=== PATIENT | female | born 1980 | race Caucasian/White ===

== ENCOUNTER 2022-12-26 16:04 | Outpatient (OUT) | payer OTHER, BC, SELFPAY ==
--- NOTE | 2022-12-26 | XR_ITS ---
The [address] [address] Patient Name: LUDWIN PACHECO MRN: [id number] date: 1980 Sex: F Assigned Patient Location: [facility] Current Patient Location: [facility] Accession/Order Number: [id number] Exam Date: 12/26/2022 16:30 Report Date: 12/26/2022 17:43 At the request of: SHAIKH ITZEL Procedure: XR chest 2V EXAM: Chest x-ray HISTORY: . Acute upper respiratory infection . COMPARISON: None. TECHNIQUE: Frontal and lateral chest FINDINGS: Heart and vascularity are unremarkable. Lungs are free of focal infiltrates. No acute bony abnormality is appreciated. XR/XR chest 2V IMPRESSION: No acute heart or lung disease identified. Electronically authenticated by: ALYSSA AGUILAR Date: 12/26/2022 17:43
== END 2022-12-26 16:05 | disposition home or self-care (01) ==
PROVIDERS: PCP Family Medicine; Visit Provider Internal Medicine
DX: J06.9 Acute upper respiratory infection, unspecified (principal)
CPT/HCPCS: 71046

== ENCOUNTER 2023-01-02 08:22 | Outpatient (OUT) | payer OTHER, BC, SELFPAY ==
[2023-01-02 08:32] LABS: Adenovirus NOT DETECTED (NOT DETECTE); Bordetella parapertussis NOT DETECTED (NOT DETECTE); Coronavirus 229E NOT DETECTED (NOT DETECTE); Coronavirus HKU1 NOT DETECTED (NOT DETECTE); Coronavirus NL63 NOT DETECTED (NOT DETECTE); Coronavirus OC43 NOT DETECTED (NOT DETECTE); Human Metapneumovirus NOT DETECTED (NOT DETECTE); Human Rhinovirus/Enterovirus NOT DETECTED (NOT DETECTE); Influenza A NOT DETECTED (NOT DETECTE); Influenza B NOT DETECTED (NOT DETECTE); Mycoplasma pneumoniae NOT DETECTED (NOT DETECTE); Parainfluenza Virus 1 NOT DETECTED (NOT DETECTE); Parainfluenza Virus 2 NOT DETECTED (NOT DETECTE); Parainfluenza Virus 3 NOT DETECTED (NOT DETECTE); Parainfluenza Virus 4 NOT DETECTED (NOT DETECTE); Respiratory Syncytial Virus NOT DETECTED (NOT DETECTE); SARS-CoV-2 NOT DETECTED (NOT DETECTE)
== END 2023-01-02 08:23 | disposition home or self-care (01) ==
PROVIDERS: PCP Family Medicine; Visit Provider Internal Medicine
DX: J06.9 Acute upper respiratory infection, unspecified (principal)
CPT/HCPCS: 0202U

== ENCOUNTER 2023-01-15 16:56 | Outpatient (REF) | payer OTHER, BC, SELFPAY ==
[2023-01-15 17:39] LABS: Anion Gap 11.5; BUN Creatinine Ratio 12.2; Calcium 9.2 mg/dL (8.5-10.1); Carbon Dioxide 26.4 mmol/L (21.0-32.0); Chloride 105 mmol/L (98-107); Estimated GFR (African America >60 (>=60); Estimated GFR (Non-African Ame >60 (>=60); Glucose 103 mg/dL (74-106); Potassium 3.9 mmol/L (3.5-5.1); Sodium 139 mmol/L (136-145)
== END 2023-01-15 16:57 | disposition home or self-care (01) ==
LOC: LAB 16:56
PROVIDERS: PCP Family Medicine; Visit Provider Internal Medicine
DX: I10 Essential (primary) hypertension (principal)
CPT/HCPCS: 36415; 80048

== ENCOUNTER 2023-01-18 16:08 | Outpatient (OUT) | payer OTHER, BC, SELFPAY ==
[2023-01-18 16:26] LABS: Basophils Percent Auto 0.4 % (0.2-2.0); Eosinophils Absolute Auto 0.3 10^3/uL (0.0-0.7); Eosinophils Percent Auto 3.5 % (0.9-7.0); Hematocrit 40.1 % (36.0-48.0); Hemoglobin 13.6 g/dL (12.0-16.0); Immature Granulocytes Abs Auto 0.06 10^3/uL (0.00-0.03); Immature Granulocytes Pct Auto 0.6 % (0.0-0.5); Lymphocytes Absolute Auto 2.5 10^3/uL (1.2-3.8); Lymphocytes Percent Auto 25.9 % (20.5-60.0); Mean Corpuscular HGB Conc 33.9 g/dL (29.9-35.2); Mean Corpuscular Hemoglobin 30.8 pg (26.7-34.0); Mean Corpuscular Volume 90.7 fL (81.0-99.0); Mean Platelet Volume 9.7 fL (9.5-13.5); Monocytes Absolute Auto 0.6 10^3/uL (0.3-0.8); Monocytes Percent Auto 6.3 % (1.7-12.0); Neutrophils Absolute Auto 6.1 10^3/uL (1.4-6.5); Neutrophils Percent Auto 63.3 % (43.0-75.0); Platelet Count 290 10^3/uL (150-450); Red Blood Count 4.42 10^6/uL (4.20-5.40); Red Cell Distribution Width 11.7 % (11.0-15.0); White Blood Count 9.6 10^3/uL (4.0-11.0)
[2023-01-18 16:41] LABS: Estimated Average Glucose 114 mg/dL; Glycohemoglobin A1C 5.6 % (4.5-6.2)
[2023-01-18 16:55] LABS: Alanine Aminotransferase 20 U/L (14-59); Albumin Level 3.9 g/dL (3.4-5.0); Alkaline Phosphatase 81 U/L (46-116); Aspartate Amino Transferase 13 U/L (15-37); BUN Creatinine Ratio 7.7; Bilirubin Direct 0.1 mg/dL (0.0-0.2); Bilirubin Total 0.4 mg/dL (0.2-1.0); Calcium 9.1 mg/dL (8.5-10.1); Carbon Dioxide 29.6 mmol/L (21.0-32.0); Chloride 104 mmol/L (98-107); Chol HDL Ratio 3.8; Cholesterol 187 mg/dL (<=200); Estimated GFR (African America >60 (>=60); Estimated GFR (Non-African Ame >60 (>=60); Glucose 92 mg/dL (74-106); HDL Cholesterol 49 mg/dL (40-60); LDL Cholesterol Calculated 119.6 mg/dL; Potassium 3.6 mmol/L (3.5-5.1); Sodium 140 mmol/L (136-145); Thyroid Stimulating Hormone 3.433 uIU/mL (0.358-3.740); Total Protein 7.9 g/dL (6.4-8.2); Triglycerides 92 mg/dL (<=150); VLDL CHOLESTEROL 18.4 mg/dL
== END 2023-01-18 16:09 | disposition home or self-care (01) ==
LOC: LAB 16:10
PROVIDERS: PCP Family Medicine; Visit Provider Family Medicine
DX: Z00.00 Encounter for general adult medical examination without abnormal findings (principal); R06.02 Shortness of breath
CPT/HCPCS: 36415; 80048; 80061; 80076; 83036; 84443; 85025

== ENCOUNTER 2023-01-23 13:16 | Outpatient (OUT) | payer OTHER, BC, SELFPAY ==
[2023-01-23 13:53] LABS: Bilirubin Urine NEGATIVE (NEGATIVE); Blood Urine NEGATIVE (NEGATIVE); Clarity Urine CLEAR (CLEAR); Color Urine LT. YELLOW (YELLOW); Glucose Urine UA NEGATIVE (NEGATIVE); Ketones Urine NEGATIVE (NEGATIVE); Leukocyte Esterase Urine NEGATIVE (NEGATIVE); Nitrite Urine NEGATIVE (NEGATIVE); Protein Urine NEGATIVE (NEG/TRACE); Specific Gravity Urine 1.025 (1.005-1.025); Urobilinogen Urine 0.2 EU/dL (0.2-1.0)
[2023-01-23 14:01] LABS: Urine Microscopic Indicated NO
== END 2023-01-23 13:17 | disposition home or self-care (01) ==
LOC: LAB 13:19
PROVIDERS: PCP Family Medicine; Visit Provider Family Medicine
DX: R30.0 Dysuria (principal)
CPT/HCPCS: 81003; 87086

== ENCOUNTER 2023-03-12 07:34 | Outpatient (OUT) | payer OTHER, BC, SELFPAY ==
--- OUTSIDE RECORDS SUMMARY | 2023-03-12 07:38 | XMS_ITS | CCD ---
Author Name Unknown Address [address] [place] [address] Organization [facility] Care Team Providers Care Human Resources District Manager Name Role Phone (Historical), No Pcp Primary Care Provider Unava ilable ABBIE EARLY Attending Unavailable HAGEN, SHANIA Attending Unavailable ABBIE EARLY Referring Unavailable NADERER, DR DIEGO Ashley Attending Unavailable NADERER, DR DIEOG Ashley Admitting Unavailable NADERER, DR DIEGO Ashley Primary Care Unavailable NADERER, DR DIEGO Ashley Consulting Unavailable NADERER, DR DIEGO Ashley Admitting Unavailable NADERER, DR DIEGO Ashley Primary Care Unavailable NADERER, DR DIEGO Ashley Consulting Unavailable NADERER, DR DIEGO Ashley Attending Unavailable NADERER, DIEGO Attending Unavailable NADERER, DIEGO Attending Unavailable NADERER, DIEGO Referring Unavailable NADERER, DIEGO Referring Unavailable Allergies Allergy Classification Reported Allergen(s) Allergy Type Date of Onset Reaction(s) Facility (4 sources) Ciprofloxacin; Translations: [CIPROFLOXACIN] Drug Allergy 03-31-2014 [facility] (4 sources) Ethanol; Translations: [ALCOHOL] Drug Allergy 03-31-2014 [facility] (1 source) Ciprofloxacin Drug Allergy 06-13-2015 [facility]ository Medications Completed/Discontinued Medications Medication Drug Class(es) Dates Sig (Normalized) Sig (Original) acetaminophen 500 mg oral tablet (1 source) acetaminophen (TYLENOL EXTRA STRENGTH) 500 mg tablet Take 500 mg by mouth as needed. 0 Active Comment on above: Take 500 mg by mouth as needed. Magnesium glycinate (1 source) Start: 01-11-2022 Magnesium Glycinate 120mg - 90 ct. (Pure Encapsulations) Take 4 capsules daily at bedtime 0 01/11/2022 Active Comment on above: Take 4 capsules silvestre y at bedtime meloxicam 7.5 mg oral tablet (2 sources) Nonsteroidal Anti-inflammatory Drug Start: 04-07-2014 End: 01-11-2022 meloxicam (MOBIC) 7.5 mg tablet Take once daily with food or milk for 2 weeks, then begin taking as needed. 30 tablet 2 04/07/2014 01/11/2022 Discontinued (Discontinued by Patient) Comment on above: Take once daily with food or milk for 2 weeks, then begin taking as needed. Methylcobalamin B12 5000mcg (Klaire/Prothera) (1 source) Start: 01-11-2022 take 1 tablet by mouth once daily Methylcobalamin B12 5000mcg (Klaire/Prothera) Take 1 tablet by mouth once daily. 0 01/11/2022 Active Comment on above: Take 1 tablet by tracey th once daily. nabumetone 500 mg oral tablet (2 sources) Nonsteroidal Anti-inflammatory Drug End: 01-11-2022 take 500 mg by mouth three times daily NABUMETONE (RELAFEN ORAL) Take 500 mg by mouth three times daily. 0 01/11/2022 Discontinued (Discontinued by Patient) Comment on above: Take 500 mg by mouth three times daily. OmegAvail [id number] ([employer]) (1 source) Start: 01-11-2022 OmegAvail [id number] (Wallarm) Take one softgel daily. 0 01/11/2022 Active Comment on above: Take one softgel jerad ly. PhytoMulti (Metagenics) (1 source) Start: 01-11-2022 PhytoMulti (Metagenics) Take 2 tablets daily with food 0 01/11/2022 Active Comment on above: Take 2 tablets daily with food Vitamin D3 5000 U (Pure Encapsulations) (1 source) Start: 01-11-2022 take 1 capsule by mouth once daily at mealtime Vitamin D3 5000 U (Pure Encapsulations) Take 1 capsule by mouth daily with food. 0 01/11/2022 Active Comment on above: Take 1 capsule by mo uth daily with food. Problems Problem Classification Problem Date Documented Da te Episodic/Chronic Administrative/social admission (2 sources) Patient encounter status; Translations: [Dietary counseling and surveillance] Episodic Allergic reactions (5 sources) Urticaria; Translations: [Urticaria, unspecified] Onset: 01-11-2022 Episodic Diabetes or abnormal glucose tolerance complicating ; childbirth; or the puerperium (5 sources) History of gestational diabetes mellitus; Translations: [Personal history of gestational diabetes] Onset: 01-11-2022 Episodic Essential hypertension (6 sources) Hypertensive disorder; Translations: [Essential (primary) hypertension] Onset: 12-31-2021 Chronic Malaise and fatigue (6 sources) Fatigue; Translations: [Chronic fatigue, unspecified] Onset: 01-11-2022 Chronic Nutritional deficiencies (5 sources) Cobalamin deficiency; Translations: [Deficiency of other specified B group vitamins] Onset: 01-11-2022 Episodic Other aftercare (1 source) 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) drug therapy; Translations: [OTH [facility] CURRENT DRUG THERAPY] Onset: 12-31-2021 Episodic Other connective tissue disease (5 sources) Fibromyalgia; Translations: [Fibromyalgia] Onset: 01-11-2022 Episodic Other connective tissue disease (1 source) Fibromyalgia; Translations: [Fibromyalgia] Onset: 01-11-2022 Episodic Other gastrointestinal disorders (4 sources) Passing flatus; Translations: [Flatulence] Onset: 01-11-2022 Episodic Other gastrointestinal disorders (5 sources) Abdominal bloating; Translations: [Abdominal distension (gaseous)] Onset: 01-11-2022 Episodic Other gastrointestinal disorders (1 source) Flatulence; Translations: [Flatulence] Onset: 01-11-2022 Episodic Other gastrointestinal disorders (1 source) Abdominal distension (gaseous); Translations: [Postprandial bloating] Onset: 01-11-2022 Episodic Other screening for suspected conditions (not mental disorders or infectious disease) (5 sources) Other specified abnormal findings of blood chemistry; Translations: [OTH SPEC ABNORMAL FINDINGS BLD CHEM] Onset: 07-15-2021 Episodic Residual codes; unclassified (4 sources) Exposure to toxin; Translations: [Contact with and (suspected) exposure to other hazardous substances] Onset: 01-11-2022 Episodic Residual codes; unclassified (5 sources) Contact with and (suspected) exposure to mold (toxic); Translations: [Contact with and (suspected) exposure to mold] Onset: 01-11-2022 Episodic Residual codes; unclassified (1 source) Exposure to mercury; Translations: [Contact with and (suspected) exposure to other hazardous metals] Episodic Residual codes; unclassified (4 sources) Suspected Lyme disease; Translations: [Other general symptoms and signs] Onset: 01-11-2022 Episodic Residual codes; unclassified (4 sources) Family history of diabetes mellitus in first degree relative; Translations: [Family history of diabetes mellitus] Onset: 01-11-2022 Episodic Residual codes; unclassified (1 source) Contact with and (suspected) exposure to other hazardous substances; Translations: [Toxin exposure] Onset: 01-11-2022 Episodic Residual codes; unclassified (1 source) Contact with and (suspected) exposure to other hazardous metals; Translations: [Exposure to mercury] Onset: 01-11-2022 Episodic Residual codes; unclassified (1 source) Other general symptoms and signs; Translations: [Suspected Lyme disease] Onset: 01-11-2022 Episodic Residual codes; unclassified (1 source) Family history of diabetes mellitus; Translations: [Family history of diabetes mellitus in father] Onset: 01-11-2022 Episodic Systemic lupus erythematosus and connective tissue disorders (7 sources) Lupus erythematosus; Translations: [Systemic lupus erythematosus, unspecified] Onset: 12-31-2021 Chronic Results Test Name Value Interpretation Reference Range Facility CT CHEST WO IV CONTRASTon CT CHEST WO IV CONTRAST EXAMINATION: CT scan chest HISTORY: Short of breath, chronic cough. COMPARISON: None TECHNIQUE: Multiple serial axial images of the chest from the base of the neck through the upper abdomen with both sagittal coronal reconstruction was performed without intravenous or oral administration of contrast. All CT scans at this facility use dose modulation, iterative reconstruction, and/or weight based dosing when appropriate to reduce radiation dose to as low as reasonably achievable. FINDINGS: The right lung parenchyma shows no focal parenchymal abnormalities. No pleural effusions. No pneumothoraces. The left lung parenchyma shows no focal parenchymal abnormalities no pleural effusions. No pneumothoraces. The heart and great vessels are intact. No significant periaortic, pretracheal, parahilar or subcarinal adenopathy. In the xrydn-[id number] of the abdomen there is a small hiatal hernia. Lies osseous structures are intact IMPRESSION: UNREMARKABLE CT SCAN OF THE CHEST ELECTRONICALLY SIGNED BY: Kaushal Gonsales MD Normal Not Available 25([place])D3 [facility] 2021 25-hydroxyvitamin D3 [Mass/Vol] 38.3 ng/mL Normal 31.0-80.0 [facility] Comment on above: Order Comment: Speci men Type: BLOOD SPECIMEN Ordering Facility: [facility] Address: [address] [place], [place] [id number] Result Comment: Clas sification of 25 [place] Vitamin D status: Deficiency/Insufficiency: < or = 30 ng/ml. Sufficiency/Optimal Levels: 31-80 ng/mL Toxicity: > 100 ng/mL. Test performed by chemiluminescent immunoassay. Performed By: #### 2 2293-5, 41680-6 #### [facility] CLIA [id number] [address] [facility] DESK [id number] [place] [address] [facility] ARSENIC BLDon 01-11-2022 ARSENIC, BLOOD <10.0 Normal <=12.0 [facility] Comment on above: Order Comment: Speci men Type: BLOOD SPECIMEN Ordering Facility: [facility] Address: [address] [place] [address] Result Comment: INTE RPRETIVE INFORMATION: Arsenic, Blood Elevated results may be due to skin or collection-related contamination, including the use of a noncertified metal-free collection/transport tube. If contamination concerns exist due to elevated levels of blood arsenic, confirmation with a second specimen collected in a certified metal-free tube is recommended. Potentially toxic ranges for blood arsenic: Greater than or equal to 600 ug/L. Blood arsenic is for the detection of recent exposure poisoning only. Blood arsenic levels in healthy subjects vary considerably with exposure to arsenic in the diet and the environment. A 24-hour urine arsenic is useful for the detection of chronic exposure. This test was developed and its performance characteristics determined by [facility]. It has not been cleared or approved by the [place] Food and Drug Administration. This test was performed in a CLIA certified laboratory and is intended for clinical purposes. Performed By: [facility] [address] [place] [address] Pouring Crane Operator: Yadiel Lopes MD, PhD Performed By: #### B KIERA HARRINGTON #### [employer] CLIA [id number] [address] [place] [address] B. burgdorferi IgG and IgM p jada (S)on 01-11-2022 B. burgdorferi IgG+IgM Qn (S) Negative Normal Negative [facility] Comment on above: Order Comment: Speci men Type: BLOOD SPECIMEN Ordering Facility: [facility] Address: [address] [id number] Result Comment: Rece nt infection with B. burgdorferi sensu lato cannot be excluded if the specimen collected within four weeks after the onset of signs and symptoms or within six weeks after a known tick exposure. Clinical and epidemiological correlation is required. Performed By: #### 2 2293-5, 07892-7 #### [facility] CLIA [id number] [address] [facility] [id number] [place] [address] OF [facility] BABESIA CLINTON IGG/IGMon 2021 BABESIA MICROTI, IGG < 1:16 Normal < 1:16 [facility] Comment on above: Order Comment: Order ing Facility: [facility] Address: [address] Result Comment: INTE RPRETIVE INFORMATION: Babesia microti Antibody, IgG Less than 1:16 ........ Negative - No significant level of detectable Babesia IgG antibodies. 1:16 .................. Equivocal - Repeat testing in 10-14 days may be helpful. Greater than 1:16 ..... Positive - IgG antibodies to Babesia detected which may indicate a current or previous infection. This test was developed and its performance characteristics determined by [facility]. It has not been cleared or approved by the [place] Food and Drug Administration. This test was performed in a CLIA certified laboratory and is intended for clinical purposes. Performed By: #### B [facility] #### [facility] CLIA [id number] [address] [place] [address] BABESIA MICROTI, IGM <1:20 Normal <1:20 [facility] Comment on above: Order Comment: Order ing Facility: [facility] Address: [address] [place] [address] Result Comment: INTE RPRETIVE INFORMATION: Babesia microti Antibody, IgM Less than 1:20 ........ Negative - No significant level of detectable Babesia IgM antibodies. 1:20 .................. Equivocal - Repeat testing in 10-14 days may be helpful. Greater than 1:20 ..... Positive - IgM antibodies to Babesia detected which may indicate a current or recent infection. This test was developed and its performance characteristics determined by [facility]. It has not been cleared or approved by the US Food and Drug Administration. This test was performed in a CLIA certified laboratory and is intended for clinical purposes. Performed By: [facility] [address] [place] [address] Pouring Crane Operator: Yadiel Lopes MD, PhD Performed By: #### B [facility] #### [facility] CLIA [id number] [address] [place] [address] BARTONELLA AB PANELon 2021 NURY MTZ IGG AB <1:64 Normal [facility] Comment on above: Order Comment: Speci men Type: BLOOD SPECIMEN Ordering Facility: [facility] Address: [address] [place], [place] [phone] Result Comment: INTE RPRETIVE INFORMATION: Bartonella mtz Antibody, IgG Less than 1:64 ....... Negative: No significant level of Bartonella mtz IgG antibody detected. 1:64 - 1:128 ........ Equivocal: Questionable presence of Bartonella mtz IgG antibody detected. Repeat testing in 10-14 days may be helpful. 1:256 or greater ..... Positive: Presence of IgG antibody to Bartonella mtz detected, suggestive of current or past infection. A low positive suggests past exposure or infection, while high positive results may indicate recent or current infection, but is inconclusive for diagnosis. Seroconversion between acute and convalescent sera is considered strong evidence of recent infection. The best evidence for infection is a significant change on two appropriately timed specimens where both tests are done in the same laboratory at the same time. This test was developed and its performance characteristics determined by [facility]. It has not been cleared or approved by the US Food and Drug Administration. This test was performed in a CLIA certified laboratory and is intended for clinical purposes. Performed By: #### B ARTAB, ECHAFF #### [facility] CLIA [id number] [address] [place] [address] NURY MTZ IGM AB < 1:16 Normal [facility] Comment on above: Order Comment: Speci la Type: BLOOD SPECIMEN Ordering Facility: [facility] Address: [address] [place], [place] [id number] Result Comment: INTE RPRETIVE INFORMATION: Bartonella mtz Ab, IgM Less than 1:16 ...... Negative-No significant level of Bartonella mtz IgM antibody detected. 1:16 or greater ..... Positive-Presence of IgM antibody to Bartonella mtz detected, suggestive of current or recent infection. The presence of IgM antibodies suggests recent infection. Low levels of IgM antibodies may occasionally persist for more than 12 months post-infection. This test was developed and its performance characteristics determined by [facility]. It has not been cleared or approved by the US Food and Drug Administration. This test was performed in a CLIA certified laboratory and is intended for clinical purposes. Performed By: [facility] [employer] [address] [place] [address] Pouring Crane Operator: Yadiel Lopes MD, PhD Performed By: #### B ARTAB, [facility] #### [facility] CLIA [id number] [address] [place] [address] BARTONELLA HENSELAE AB, IGG <1:64 Normal [facility] Comment on above: Order Comment: Leidy tovar Type: BLOOD SPECIMEN Ordering Facility: [facility] Address: [address] [place], [place] [phone] Result Comment: INTE RPRETIVE INFORMATION: Bartonella henselae Ab, IgG Less than 1:64 ....... Negative: No significant level of Bartonella henselae IgG antibody detected. 1:64 - 1:128 ......... Equivocal: Questionable presence of Bartonella henselae IgG antibody detected. Repeat testing in 10-14 days may be helpful. 1:256 or greater ..... Positive: Presence of IgG antibody to Bartonella henselae detected, suggestive of current or past infection. A low positive suggests past exposure or infection, while high positive results may indicate recent or current infection, but are inconclusive for diagnosis. Seroconversion between acute and convalescent sera is considered strong evidence of recent infection. The best evidence for infection is significant change on two appropriately timed specimens where both tests are done in the same laboratory at the same time. This test was developed and its performance characteristics determined by [facility]. It has not been cleared or approved by the US Food and Drug Administration. This test was performed in a CLIA certified laboratory and is intended for clinical purposes. Performed By: #### B KIERA HARRINGTON #### [facility] CLIA [id number] [address] [place] [address] BARTONELLA HENSELAE AB, IGM < 1:16 Normal [facility] Comment on above: Order Comment: Speci men Type: BLOOD SPECIMEN Ordering Facility: [facility] Address: [address] [place] [id number] Result Comment: INTE RPRETIVE INFORMATION: Bartonella henselae Antibody, IgM Less than 1:16 ...... Negative: No significant level of Bartonella henselae IgM antibody detected. 1:16 or greater ..... Positive: Presence of IgM antibody to Bartonella henselae detected, suggestive of current or recent infection. The presence of IgM antibodies suggest recent infection, low levels of IgM antibodies may occasionally persist for more than 12 months post infection. This test was developed and its performance characteristics determined by [facility]. It has not been cleared or approved by the US Food and Drug Administration. This test was performed in a CLIA certified laboratory and is intended for clinical purposes. Performed By: #### B KIERA HARRINGTON #### [facility] CLIA [id number] [address] [place] [address] CNOVon 01-11-2022 CNOV Office Visit ([facility] ) JU MCNAIR ([id number]) 1980 F Date Time Provider Department 01/11/22 9:45 AM ABBIE EARLY [facility] During your visit today, we recorded the following information about you: Temperature Pulse Blood pressure Weight 97.2 degrees 79/minute 132/84 75.1 kg Height 1.626 m Abbie Early MD 01/11/2022 10:59 AM Signed FUNCTIONAL MEDICINE INITIAL ASSESSMENT ALLERGIES Allergen Reactions Alcohol Hives Drinking Alcohol not Rubbing Alcohol Ciprofloxacin Hives Current Outpatient Medications Medication Sig Dispense Refill acetaminophen (TYLENOL EXTRA STRENGTH) 500 mg tablet Take 500 mg by mouth as needed. PhytoMulti (Metagenics) Take 2 tablets daily with food Magnesium Glycinate 120mg - 90 ct. (Pure Encapsulations) Take 4 capsules daily at bedtime OmegAvail [id number] (Wallarm) Take one softgel daily. Methylcobalamin B12 5000mcg (Klaire/Prothera) Take 1 tablet by mouth once daily. Vitamin D3 5000 U (Pure Encapsulations) Take 1 capsule by mouth daily with food. 0 No current facility-administered medications for this visit. PAST MEDICAL HISTORY Diagnosis Date Anemia associated with acute blood loss after premature of child Gall bladder stones removed 02/18/01 History of blood transfusion 3 Units PRBC's after 1 premature of child PAST SURGICAL HISTORY Procedure Laterality Date DANDC (INCOMPLETE AB), ANY TRIMESTER misscarriage KNEE ARTHROSCOP MENISCUS REPAIR MED/LAT 10/2002 Right KNEE ARTHROSCOP MENISCUS REPAIR MED/LAT 12/2002 Right- refixed tear LAPAROSCOPY SURG CHOLECYSTECTOMY 02/18/2001 multiple gallstones LASER SURGERY OF EYE 1999 lasix REMOVAL OF KNEE CARTILAGE 11/2002 Left Social History Tobacco Use Smoking status: Never Smokeless tobacco: Never Substance Use Topics Alcohol use: No Drug use: No EVALUATION MSQ: 157 Patient Entered Questionnaire PROMIS Scale T-Scores -- HIGHER SCORES BETTER Depression Screening: PHQ-9 Self-Harm (Item 9) response options: 0 Not at all 1 Several days 2 More than half the days 3 Nearly every day PHQ-9 Levels: 0-4 Minimal depression 5-9 Mild depression 10-14 Moderate depression 15-19 Moderately severe depression 20-27 Severe depression Subjective: Initial Visit Dr. Early 01/11/22 Medical Symptom Questionnaire 157, very high This consultation was requested by Yaneth Espinoza CNP My final recommendations will be communicated to the referring physician by way of the shared medical record for internal providers. Thank you for the opportunity to participate in the care of your patient, Ju Mcnair, whom I saw in [facility]. HPI: General InfoLast Medical Care:Jan 09, 2022 - [facility] - Yaneth Espinoza [facility] Physician Name:Dr. Solitario MarmolejoLearned about our practice from:Referral from Doctor Health Goals What do you hope to achieve in your visit with us?:I hope to feel better, loose weight and have the energy to keep up with my busy scheduleWhen was the last time you felt well?:I dont remember. I have had lupus for a long while, and have felt worse since my hysterectomy in [place] something trigger your change in health?:Maybe stress/ but I always have stress physically/ mentallyWhat makes you feel better?:Bubble baths in epson salt, sleep,What makes you feel worse?:Being too activeHow does your condition affect you?:I get dizzy, lightheaded, lots of joint pain and discomfort, swelling in my hands and feet and legs, chest pains, difficulty breathing at times, high blood pressure, sometimes thyroid trouble, fibromialgia, struggles when my hormones change, discomfort with all food causing heartburn troubleWhat do you think is happening and why?:I think my body hates me. Really I think that my hormones are a mess, and my gut health, sleep schedule is sparatic due to pain and discomfortWhat do you feel needs to happen for you to get better?:I think I need to make better choices health correa and to keep my stress in control. Current Health Concerns Current Problem Name Date Started Priority Severity Prior Treatment Success of Prior Treatment lupus - 1 Severe Yes Not Successful eye pressure trouble - 4 Moderate No n/a chest pains - 2 Severe Yes Not Successful dizziness/ pots - 5 Moderate No n/a hives - 6 Moderate No n/a swelling - 7 Moderate No - Difficulty breathing - 3 Severe Yes Not Successful High blood pressure - 9 Moderate No Not Successful Life Events Significant Life Events Timing of Life Event Start Date End Date Severity Comments Miscarriage Experienced in past - - Severe - Left home Experienced in past 02/19/2000 - Mild - Separation Experienced in past - - Moderate - Divorce Experienced in past - - Moderate - Child illness Experienced in past - - Severe - of child Experie (more content not included)... Normal [facility] COPPER BLOODon 01-11-2022 Copper [Mass/Vol] 93 ug/dL Normal 80-155 [facility] Comment on above: Order Comment: Speci men Type: BLOOD SPECIMEN Ordering Facility: [facility] Address: [address] Result Comment: This test was developed and its performance characteristics determined by [facility] [place] ([facility]). It has not been cleared or approved by the FDA. -[facility] is regulated under CLIA as qualified to perform high-complexity testing. This test is used for clinical purposes. It should not be regarded as investigational or for research. Performed By: #### 5 763-8, COPPER #### [facility] CLIA [id number] [address] [place] [address] [place] Comprehensive metabolic 2000 panelon 01-11-2022 Albumin [Mass/Vol] 4.3 g/dL Normal 3.9-4.9 [facility] Comment on above: Order Comment: Speci men Type: BLOOD SPECIMEN Ordering Facility: [facility] Address: [address] Performed By: #### 2 2293-5, 21626-0 #### [facility] CLIA [id number] [address] [place] [address] [place] ALP [Catalytic activity/Vol] 63 U/L Normal 34-123 [facility] Comment on above: Order Comment: Speci men Type: BLOOD SPECIMEN Ordering Facility: [facility] Address: [address] Performed By: #### 2 2293-5, 55408-0 #### [facility] CLIA [id number] [address] [place] [address] [place] ALT [Catalytic activity/Vol] 13 U/L Normal 7-38 [facility] Comment on above: Order Comment: Speci men Type: BLOOD SPECIMEN Ordering Facility: [facility] Address: [address] [place], [place] [address] Performed By: #### 2 2293-5, 78782-9 #### [facility] CLIA [id number] [address] [place] [id number] [place] Anion gap [Moles/Vol] 11 mmol/L Normal 9-18 [facility] Comment on above: Order Comment: Speci men Type: BLOOD SPECIMEN Ordering Facility: [facility] Address: [address] [place] [address] Performed By: #### 2 2293-5, 96286-8 #### [facility] CLIA [id number] [address] [place] [address] [place] AST [Catalytic activity/Vol] 14 U/L Normal 13-35 [facility] Comment on above: Order Comment: Speci men Type: BLOOD SPECIMEN Ordering Facility: [facility] Address: [address] [place] [address] Performed By: #### 2 2293-5, 07741-4 #### [facility] CLIA [id number] [address] [place] [address] [place] Bilirubin [Mass/Vol] 0.7 mg/dL Normal 0.2-1.3 [facility] Comment on above: Order Comment: Speci men Type: BLOOD SPECIMEN Ordering Facility: [facility] Address: [address] [place] [address] Performed By: #### 2 2293-5, 86988-1 #### [facility] CLIA [id number] [address] [place] [address] [place] Calcium [Mass/Vol] 9.2 mg/dL Normal 8.5-10.2 [facility] Comment on above: Order Comment: Speci men Type: BLOOD SPECIMEN Ordering Facility: [facility] Address: [address] [place], [place] [address] Performed By: #### 2 2293-5, 05102-8 #### [facility] CLIA [id number] [address] OF [facility] Chloride [Moles/Vol] 104 mmol/L Normal 97-105 [facility] Comment on above: Order Comment: Speci men Type: BLOOD SPECIMEN Ordering Facility: [facility] Address: [address] [place] [address] Performed By: #### 2 2293-5, 87424-6 #### [facility] CLIA [id number] [facility] [address] OF [facility] CO2 [Moles/Vol] 25 mmol/L Normal 22-30 [facility] Comment on above: Order Comment: Speci men Type: BLOOD SPECIMEN Ordering Facility: [facility] Address: [address] [place] [address] Performed By: #### 2 2293-5, 38781-6 #### [facility] CLIA [id number] [address] [place] [address] OF [facility] Creatinine [Mass/Vol] 0.87 mg/dL Normal 0.58-0.96 [facility] Comment on above: Order Comment: Speci men Type: BLOOD SPECIMEN Ordering Facility: [facility] Address: [address] [place] [address] Performed By: #### 2 2293-5, 44319-5 #### [facility] CLIA [id number] [address] [place] [address] OF [facility] ESTIMATED GLOMERULAR FILTRATION RATE 87 mL/min/1.73m??? Normal >=60 [facility] Comment on above: Order Comment: Speci men Type: BLOOD SPECIMEN Ordering Facility: [facility] Address: [address] [place] [address] Result Comment: Jennifer mated Glomerular Filtration Rate (eGFR) is calculated using the 2020 CKD-EPI creatinine equation. This equation utilizes serum creatinine, sex, and age as parameters. The creatinine assay has traceable calibration to isotope dilution-mass spectrometry. Refer to KDIGO guidelines for clinical interpretation. In patients with unstable renal function, e.g. those with acute kidney injury, the eGFR may not accurately reflect actual GFR. Performed By: #### 2 2293-5, 24130-4 #### [facility] CLIA [id number] [address] [place] [address] [place] Glucose [Mass/Vol] 73 mg/dL Low 74-99 [facility] Comment on above: Order Comment: Speci men Type: BLOOD SPECIMEN Ordering Facility: [facility] Address: [address] [place] [address] Result Comment: The [place] Diabetes Association (ADA) provides guidance for cutoff values for fasting glucose and random glucose. The ADA defines fasting as no caloric intake for at least 8 hours. Fasting plasma glucose results between 100 to 125 mg/dL indicate increased risk for diabetes (prediabetes). Fasting plasma glucose results greater than or equal to 126 mg/dL meet the criteria for diagnosis of diabetes. In the absence of unequivocal hyperglycemia, results should be confirmed by repeat testing. In a patient with classic symptoms of hyperglycemia or hyperglycemic crisis, random plasma glucose results greater than or equal to 200 mg/dL meet the criteria for diagnosis of diabetes. Reference: Standards of Medical Care in Diabetes 2016, [place] Diabetes Association. Diabetes Care. 2016.39(Suppl 1). Performed By: #### 2 2293-5, 41736-2 #### [facility] CLIA [id number] [address] [place] [address] [place] Potassium [Moles/Vol] 3.9 mmol/L Normal 3.7-5.1 [facility] Comment on above: Order Comment: Speci men Type: BLOOD SPECIMEN Ordering Facility: [facility] Address: [address] [id number] Performed By: #### 2 2293-5, 91161-3 #### [facility] CLIA [id number] [facility] [place] [address] [place] Protein [Mass/Vol] 6.9 g/dL Normal 6.3-8.0 [facility] Comment on above: Order Comment: Speci men Type: BLOOD SPECIMEN Ordering Facility: [facility] Address: [address] [place] [address] Performed By: #### 2 2293-5, 06879-6 #### [facility] CLIA [id number] [address] [place] [address] [place] Sodium [Moles/Vol] 140 mmol/L Normal 136-144 [facility] Comment on above: Order Comment: Speci men Type: BLOOD SPECIMEN Ordering Facility: [facility] Address: [address] [place] [address] Performed By: #### 2 2293-5, 33812-9 #### [facility] CLIA [id number] [address] [place] [address] [place] Urea nitrogen [Mass/Vol] 11 mg/dL Normal 7-21 [facility] Comment on above: Order Comment: Speci men Type: BLOOD SPECIMEN Ordering Facility: [facility] Address: [address] [place] [address] Performed By: #### 2 2293-5, 67674-6 #### [facility] CLIA [id number] [address] [place] [address] [place] EBV capsid IgG Qn (S)on 12-21 EBV VCA IGG, QUAL Normal [facility] Comment on above: Order Comment: Speci men Type: BLOOD SPECIMEN Ordering Facility: [facility] Address: [address] [place] [address] Result Comment: EBV Antibody to Viral Capsid Antigen IgG result is: 61.1 U/mL Reference range is : 0.00 - 21.9 U/mL Interpretive Information: Narciso - Guevara Virus Antibody to Viral Capsid Antigen, IgG 17.9 U/mL or less: Not Detected 18.0 - 21.9 U/mL: Indeterminate - Repeat testing in 10 - 14 days may be helpful. 22.0 U/mL or greater: Detected Performed at [facility], [place], [place]. Performed By: #### 2 2293-5, 68524-8 #### [facility] CLIA [id number] [address] [place] [address] [place] EBV capsid IgM Qn (S)on 12-21 EBV VCA IGM, QUAL Negative Normal Negative [facility] Comment on above: Order Comment: Speci men Type: BLOOD SPECIMEN Ordering Facility: [facility] Address: [address] [place] [address] Result Comment: No s erological evidence of recent EBV infection. Performed By: #### 2 2293-5, 05146-2 #### [facility] CLIA [id number] [address] [place] [address] [place] EBV early Ab Qn (S)on 2021 EBV EA AB, QUAL Normal [facility] Comment on above: Order Comment: Speci men Type: BLOOD SPECIMEN Ordering Facility: [facility] Address: [address] [place] [address] Result Comment: EBV Antibody to Early (D) Antigen IgG result is: <5.0 U/ml Reference range is: 0.00 - 10.9 U/mL Interpretive Information: Narciso - Guevara Virus Antibody to Early (D) Antigen, IgG 8.9 U/mL or less: Not Detected 9.0-10.9 U/mL: Indeterminate - Repeat testing in 10 - 14 days may be helpful. 11.0 U/mL or greater: Detected Performed at [facility], [place], [place]. Performed By: #### 2 2293-5, 16458-6 #### [facility] CLIA [id number] [address] [place] [address] OF [facility] EBV nuclear Ab Qn (S)on 12-21 EBV NA AB, QUAL Normal [facility] Comment on above: Order Comment: Speci men Type: BLOOD SPECIMEN Ordering Facility: [facility] Address: [address] [place] [address] Result Comment: EBV Antibody to Nuclear Antigen IgG result is: 45.6 U/mL Reference range is: 0.00 - 21.9 U/mL Interpretive Information: Narciso - Guevara Virus Antibody to Nuclear Antigen, IgG 17.9 U/mL or less: Not Detected 18.0-21.9 U/mL: Indeterminate - Repeat testing in 10 - 14 days may be helpful. 22.0 U/mL or greater: Detected Performed at [facility] [employer], [place], [place]. Performed By: #### 2 2293-5, 26285-9 #### [facility] CLIA [id number] [address] [facility] DESK [id number] [place] [address] EHRLICHIA CHAF ABSon 01-11- 022 EHRLICHIA CHAFFEENSIS ANTIBODY, IGG <1:64 Normal <1:64 [facility] Comment on above: Order Comment: Speci men Type: BLOOD SPECIMEN Ordering Facility: [facility] Address: [address] [id number] Result Comment: INTE RPRETIVE INFORMATION: Ehrlichia Chaffeensis IgG Ab Less than 1:64 ....... Negative: No significant level of Ehrlichia chaffeensis IgG antibody detected. 1:64-1:128 ........... Equivocal: Questionable presence of Ehrlichia chaffeensis IgG antibody detected. Repeat testing in 10-14 days may be helpful. 1:256 or greater ..... Positive: Presence of IgG antibody to Ehrlichia chaffeensis detected, suggestive of current or past infection. Seroconversion between acute and convalescent sera is considered strong evidence of recent infection. The best evidence for infection is a significant change (fourfold difference in titer) on two appropriately timed specimens, where both tests are done in the same laboratory at the same time. This test was developed and its performance characteristics determined by [facility]. It has not been cleared or approved by the US Food and Drug Administration. This test was performed in a CLIA certified laboratory and is intended for clinical purposes. Performed By: #### B KIERA HARRINGTON #### [facility] CLIA [id number] [address] [place] [address] EHRLICHIA CHAFFEENSIS ANTIBODY, IGM < 1:16 Normal < 1:16 [facility] Comment on above: Order Comment: Speci men Type: BLOOD SPECIMEN Ordering Facility: [facility] Address: [address] [place] [address] Result Comment: INTE RPRETIVE INFORMATION: Ehrlichia Chaffeensis IgM Ab Less than 1:16 ....... Negative - No significant level of Ehrlichia chaffeensis IgM antibody detected. 1:16 or greater ...... Positive - Presence of IgM antibody to Ehrlichia chaffeensis detected, suggestive of current or recent infection. While the presence of IgM antibodies suggest current or recent infection, low levels of IgM antibodies may occasionally persist for more than 12 months post-infection. A single IgM result should be interpreted with caution. This test was developed and its performance characteristics determined by [facility]. It has not been cleared or approved by the US Food and Drug Administration. This test was performed in a CLIA certified laboratory and is intended for clinical purposes. Performed By: [facility] [address] [place] [address] [employer] Operator: Yadiel Lopes MD, PhD Performed By: #### B JUANY, ECHAFF #### [id number] [address] [place] [address] GGT SerPl-cCncon 01-11-2022 Gamma glutamyl transferase [Catalytic activity/Vol] 12 U/L Normal 6-46 [facility] Comment on above: Order Comment: Specani tovar Type: BLOOD SPECIMEN Ordering Facility: [facility] Address: [address] [place] [address] Performed By: #### B JUANY, ECHAFF #### [facility] [id number] [address] [place] [address] GLIADIN (DEAMIDATED) AB, IGA on 01-11-2022 GLIAD DEAMIDATED IGA QUAL Negative Normal Negative, Test not Indicated [facility] Comment on above: Order Comment: Leidy tovar Type: BLOOD SPECIMEN Ordering Facility: [facility] Address: [address] [place] [address] Result Comment: This is used as an aid in diagnosis of celiac disease. Clinical correlation is required. The following results were obtained with an [employer] QUANTA Lite Gliadin IgA SUMMER Gliadin. Gliadin IgA values obtained with different manufacturers' assay methods may not be used interchangeably. The magnitude of the reported IgA levels cannot be correlated to an endpoint titer. Performed By: #### 2 2293-5, 09638-9 #### [facility] CLIA [id number] [address] [place] [address] [place] Gliadin peptide IgA Qn (S) 4 Units Normal <20 [facility] Comment on above: Order Comment: Leidy tovar Type: BLOOD SPECIMEN Ordering Facility: [facility] Address: [address] [place] [address] Performed By: #### 2 2293-, 55844-6 #### [facility] CLIA [id number] [address] [place] [address] [place] GLIADIN (DEAMIDATED) AB, IGG on 01-11-2022 GLIAD DEAMIDATED IGG QUAL Negative Normal Negative, Test not Indicated [facility] Comment on above: Order Comment: Leidy tovar Type: BLOOD SPECIMEN Ordering Facility: [facility] Address: [address] [place] [address] Result Comment: This test is used as an aid in diagnosis of celiac disease in IgA-deficient individuals only. Clinical correlation is required. The following results were obtained with an [employer]ok[employer] QUANTA Lite Gliadin IgG SUMMER Gliadin. Gliadin IgG values obtained with different manufacturers' assay methods may not be used interchangeably. The magnitude of the reported IgG levels cannot be correlated to an endpoint titer. Performed By: #### 2 2293-, 03010-8 #### [facility] CLIA [id number] [address] [place] [address] [place] Gliadin peptide IgG Qn (S) 3 Units Normal <20 [facility] Comment on above: Order Comment: Speci men Type: BLOOD SPECIMEN Ordering Facility: [facility] Address: [address] [place] [address] Performed By: #### 2 2293-, 75789-3 #### [facility] CLIA [id number] [address] [place] [address] [place] HbA1c (Bld)on 01-11-2022 Average glucose Estimated from glycated hemoglobin (Bld) [Mass/Vol] 97 mg/dL Normal [facility] Comment on above: Order Comment: Leidy la Type: BLOOD SPECIMEN Ordering Facility: [facility] Address: [address] [place] [address] Result Comment: eAG: (Estimated average glucose) is a calculated value from HgbA1c and is surgical sales representative of the average blood glucose level in the last 2-3 month period. Performed By: #### 5 5454-3 #### [facility] CLIA [id number] [address] [place] [address] [place] HbA1c (Bld) [Mass fraction] 5.0 % Normal 4.3-5.6 [facility] Comment on above: Order Comment: Leidy la Type: BLOOD SPECIMEN Ordering Facility: [facility] Address: [address] [place] [address] Result Comment: [place] Diabetes Association guidelines indicate that patients with HgbA1c in the range 5.7-6.4% are at increased risk for development of diabetes, and intervention by lifestyle modification may be beneficial. HgbA1c greater or equal to 6.5% is considered diagnostic of diabetes. Performed By: #### 5 5454-3 #### [facility] CLIA [id number] [address] [place] [address] [place] Hcys SerPl-sCncon 01-11-2022 Homocysteine [Moles/Vol] 9.4 umol/L Normal <15.1 [facility] Comment on above: Order Comment: Leidy la Type: BLOOD SPECIMEN Ordering Facility: [facility] Address: [address] [place] [address] Performed By: #### B KIERA HARRINGTON #### [facility] [id number] [address] [place] [address] Insulin SerPl-aCncon 022 Insulin Qn 8.8 u[IU]/mL Normal 3.0-25.0 [facility] Comment on above: Order Comment: Leidy la Type: BLOOD SPECIMEN Ordering Facility: [facility] Address: [address] [place] [address] Performed By: #### 2 2293-5, 20868-6 #### [facility] CLIA [id number] [facility] [place] [address] [place] Lead Bld-mCncon 01-11-2022 Lead (Bld) [Mass/Vol] ug/dL Normal <3.5 [facility] Comment on above: Order Comment: Speci men Type: VENOUS BLOOD SPECIMEN Ordering Facility: [facility] Address: [address] [place] [address] Result Comment: The Centers for Disease Control and Prevention (CDC) recommends a blood lead reference value of less than 3.5 ???g/dL (Update of the Blood Lead Reference Value - [facility], 2020). The CDC's updated Recommended Actions Based on Blood Lead Level can be accessed at www.cdc.gov. Consult [facility] Department of Health and/or applicable regulatory agencies for specific guidance on testing follow up and patient management. This test was developed and its performance characteristics determined by [facility] Laboratory [facility] [place] ([facility]). It has not been cleared or approved by the FDA. [facility] is regulated under CLIA as qualified to perform high-complexity testing. This test is used for clinical purposes. It should not be regarded as investigational or for research. Performed By: #### 5 671-3 #### [facility] CLIA [id number] [address] [place] [address] [place] MAGNESIUM RBCon 01-11-2022 Magnesium (RBC) [Moles/Vol] 4.6 mg/dL Normal 4.0-6.5 [facility] Comment on above: Order Comment: Speci men Type: BLOOD SPECIMEN Ordering Facility: [facility] Address: [place] [address] Result Comment: This test was developed and its performance characteristics determined by [facility] Laboratory [facility] [place] ([facility]). It has not been cleared or approved by the FDA. [facility] is regulated under CLIA as qualified to perform high-complexity testing. This test is used for clinical purposes. It should not be regarded as investigational or for research. Performed By: #### 2 2293-5, 98101-4 #### [facility] CLIA [id number] [address] [place] [address] [place] MERCURY BLDon 01-11-2022 MERCURY <2.5 Normal <=10.0 [facility] Comment on above: Order Comment: Speci men Type: BLOOD SPECIMEN Ordering Facility: [facility] Address: [address] [place], [place] [address] Result Comment: INTE RPRETIVE INFORMATION: Mercury, Blood Elevated results may be due to skin or collection-related contamination, including the use of a noncertified metal-free collection/transport tube. If contamination concerns exist due to elevated levels of blood mercury, confirmation with a second specimen collected in a certified metal-free tube is recommended. Blood mercury levels predominantly reflect recent exposure and are most useful in the diagnosis of acute poisoning as blood mercury concentrations rise sharply and fall quickly over several days after ingestion. Blood concentrations in unexposed individuals rarely exceed 20 ug/L. The provided reference interval relates to inorganic mercury concentrations. Dietary and non-occupational exposure to organic mercury forms may contribute to an elevated total mercury result. Clinical presentation after toxic exposure to organic mercury may include dysarthria, ataxia and constricted vision [place] with mercury blood concentrations from 20 to 50 ug/L. This test was developed and its performance characteristics determined by [facility]. It has not been cleared or approved by the US Food and Drug Administration. This test was performed in a CLIA certified laboratory and is intended for clinical purposes. Performed By: [facility] [address] [place] [address] [employer] Operator: Yadiel Lopes MD, PhD Performed By: #### 2 2293-5, 62960-7 #### [facility] CLIA [id number] [address] [place] [address] [place] REVERSE T3on 01-11-2022 REVERSE T3 14.7 ng/dL Normal 9.0-27.0 [facility] Comment on above: Order Comment: Specani men Type: BLOOD SPECIMEN Ordering Facility: [facility] Address: [address] [place], [place] [address] Result Comment: INTE RPRETIVE INFORMATION: Triiodothyronine, Reverse - LC-MS/MS This test was developed and its performance characteristics determined by [facility]. It has not been cleared or approved by the US Food and Drug Administration. This test was performed in a CLIA certified laboratory and is intended for clinical purposes. Performed By: [facility] [employer] [address] [place] [address] Pouring Crane Operator: Yadiel Lopes MD, PhD Performed By: #### B JUANY, KIERA #### [facility] CLIA [id number] [address] [place] [address] T3Free SerPl-mCncon 20 22 Free T3 [Mass/Vol] 3.3 pg/mL Normal 2.3-4.1 [facility] Comment on above: Order Comment: Speci men Type: BLOOD SPECIMEN Ordering Facility: [facility] Address: [address] [address] Performed By: #### 2 2293-5, 80026-4 #### [facility] CLIA [id number] [address] [place] [address] [place] T4 Free SerPl-mCncon 022 Free T4 [Mass/Vol] 1.1 ng/dL Normal 0.9-1.7 [facility] Comment on above: Order Comment: Speci men Type: BLOOD SPECIMEN [facility] [place] Address: [address] Performed By: #### 2 2293-5, 57852-1 #### [facility] [place] [id number] [address] [place] [address] [place] THYROGLOBULIN ABon 2 Thyroglobulin Ab Qn 2.9 [IU]/mL Normal <14.4 [facility] Comment on above: Order Comment: Speci men Type: BLOOD SPECIMEN Ordering Facility: [facility] [place] Address: [address] Performed By: #### B ARTAB, KIERA #### [facility] CLIA [id number] [address] [place] [address] THYROID PEROXIDASE ANTIBODY BLOODon 01-11-2022 TPO Ab Qn [IU]/mL Normal <5.6 [facility] Comment on above: Order Comment: Leidy tovar Type: BLOOD SPECIMEN Ordering Facility: [facility] [place] Address: [address] [place] [address] Result Comment: Thyr oid Peroxidase Antibody test is used as an aid in diagnosis of autoimmune thyroid disease. Clinical correlation is required. Performed By: #### 2 2293-5, 17703-7 #### [facility] CLIA [id number] [address] [place] [address] [place] TSH SerPl-aCncon 01-11-2022 TSH Qn 2.100 m[IU]/L Normal 0.270-4.200 [facility] Comment on above: Order Comment: Leidy tovar Type: BLOOD SPECIMEN Ordering Facility: [facility] [place] Address: [address] [place] [address] Result Comment: If t he patient is , TSH reference range varies by gestational period: First Trimester (weeks 9-12): 0.180-2.990 mIU/L Second Trimester: 0.110-3.980 mIU/L Third Trimester: 0.480-4.710 mIU/L Eitan Valente et al. A Practical Approach for the Verifications and Determination of Site- and Trimester-Specific Reference Intervals for Thyroid Function tests in . Thyroid, 2019:29:3:412-420. Bryce Stelee, et al. 2017 Guidelines of the [place] [employer] for the Diagnosis and Management of Thyroid Disease during and the . Thyroid, 2017:27:3:315-389. Performed By: #### 2 2293-5, 61537-4 #### [facility] CLIA [id number] [address] [place] [address] [place] Zinc SerPl-mCncon 01-11-2022 Zinc [Mass/Vol] 75 ug/dL Normal 60-120 [facility] Comment on above: Order Comment: Leidy tovar Type: BLOOD SPECIMEN Ordering Facility: [facility] [place] Address: [address] [place] [id number] Result Comment: This test was developed and its performance characteristics determined by [facility] [place] [facility] It has not been cleared or approved by the FDA. [facility] is regulated under CLIA as qualified to perform high-complexity testing. This test is used for clinical purposes. It should not be regarded as investigational or for research. Performed By: #### 5 763-8, COPPER #### [facility] CLIA [id number] [address] [place] tTG IgA Qn (S)on 01-11-2022 TRANSGLUTAMINASE IGA QUAL Negative Normal Negative, Test not Indicated [facility] Comment on above: Order Comment: Leidy tovar Type: BLOOD SPECIMEN Ordering Facility: [facility] [place] Address: [address] [place] [address] Result Comment: The following results were obtained with the SpinSnapva QAUNTA Lite h-tTG IgA [facility]. h-tTG IgA values obtained with different manufacturers' assay methods may not be used interchangeable. The magnitude of the reported IgA levels cannot be correlated to an endpoint titer. This is used as an aid in diagnosis of celiac disease. Clinical correlation is required. Performed By: #### 2 2293-5, 43942-7 #### [facility] CLIA [id number] [address] [place] [address] [place] tTG IgA Ser-aCncon 2 tTG IgA Qn (S) 8 Units Normal <20 [facility] Comment on above: Order Comment: Speci la Type: BLOOD SPECIMEN Ordering Facility: [facility] [place] Address: [address] [place], [place] [id number] Performed By: #### 2 2293-5, 25011-1 #### [facility] CLIA [id number] [address] [place] [address] [place] tTG IgG Qn (S)on 01-11-2022 TRANSGLUTAMINASE IGG QUAL Negative Normal Negative, Test not Indicated [facility] Comment on above: Order Comment: Leidy tovar Type: BLOOD SPECIMEN Ordering Facility: [facility] [place] Address: [address] [place] [address] Result Comment: The following results were obtained with the Vokle QUANTA Lite h-tTG IgG [facility]. h-tTG IgG values obtained with different manufacturers' assay methods may not be used interchangeable. The magnitude of the reported IgG levels cannot be correlated to an endpoint titer. This test is used as an aid in diagnosis of celiac disease in IgA-deficient individuals only. Clinical correlation is required. Performed By: #### 2 2293-5, 37670-1 #### [facility] CLIA [id number] [address] [place] [address] [place] tTG IgG Ser-aCncon 2 tTG IgG Qn (S) 8 Units Normal <20 [facility] Comment on above: Order Comment: Leidy tovar Type: BLOOD SPECIMEN Ordering Facility: [facility] [place] Address: [address] [place] [address] Performed By: #### 2 2293-5, 06365-1 #### [facility] CLIA [id number] [address] [place] [address] [place] CBC AUTO DIFFon 12-26-2021 BASO # 0.0 103/ul Normal 0.0-0.1 [facility] Comment on above: Performed By: #### C BC #### [facility] [address] [place] [address] Dr. Mary Ordaz Basophils/100 WBC (Bld) 0.3 % Normal 0.2-2.0 [facility] Comment on above: Performed By: #### C BC #### [facility] [address] [place] [address] Dr. Mary Ordaz EO # 0.2 103/ul Normal 0.0-0.7 [facility] Comment on above: Performed By: #### C BC #### [facility] [address] [place] [address] Dr. Mary Ordaz Eosinophils/100 WBC (Bld) 3.4 % Normal 0.9-7.0 [facility] Comment on above: Performed By: #### C BC #### [facility] [address] [place] [address] Dr. Mary Ordaz Erythrocyte distribution width (RBC) [Ratio] 11.6 % Normal 11.0-15.0 [facility] Comment on above: Performed By: #### C BC #### [facility] [address] [place] [address] Dr. Mary Ordaz Hematocrit (Bld) [Volume fraction] 40.6 % Normal 36.0-48.0 [facility] Comment on above: Performed By: #### C BC #### [facility] [address] [place] [address] Dr. Mary Ordaz Hemoglobin (Bld) [Mass/Vol] 13.3 g/dL Normal 12.0-16.0 [facility] Comment on above: Performed By: #### C BC #### [facility] [address] [place] [address] Dr. Mary Ordaz IG # 0.05 10e3/ul Critically high 0.00-0.03 [facility] Comment on above: Performed By: #### C BC #### [facility] [address] [place] [address] Dr. Mary Ordaz IG % 0.8 % Critically high 0.0-0.5 [facility] Comment on above: Performed By: #### C BC #### [facility] [address] [place] [address] Dr. Mary Ordaz LYMPH # 1.4 103/ul Normal 1.2-3.8 [facility] Comment on above: Performed By: #### C BC #### [facility] [address] [place] [address] Dr. Mary Ordaz Lymphocytes/100 WBC (Bld) 23.3 % Normal 20.5-60.0 [facility] Comment on above: Performed By: #### C BC #### [facility] [address] [place] [address] Dr. Mary Ordaz MANUAL DIFF REQ NO Normal [facility] Comment on above: Performed By: #### C BC #### [facility] [address] [place] [address] Dr. Mary Ordaz MCH (RBC) [Entitic mass] 30.4 pg Normal 26.7-34.0 [facility] Comment on above: Performed By: #### C BC #### [facility] [address] [place] [address] Dr. Mary Ordaz MCHC (RBC) [Mass/Vol] 32.8 g/dL Normal 29.9-35.2 [facility] Comment on above: Performed By: #### C BC #### [facility] [address] [place] [address] Dr. Mary Ordaz MCV (RBC) [Entitic vol] 92.7 fL Normal 81.0-99.0 [facility] Comment on above: Performed By: #### C BC #### [facility] [address] [place] [address] Dr. Mary Ordaz MONO # 0.4 103/ul Normal 0.3-0.8 [facility] Comment on above: Performed By: #### C BC #### [facility] [address] [place] [address] Dr. Mary Ordaz Monocytes/100 WBC (Bld) 5.7 % Normal 1.7-12.0 [facility] Comment on above: Performed By: #### C BC #### [facility] [address] [place] [address] Dr. Mary Ordaz NEUT # 4.1 103/ul Normal 1.4-6.5 [facility] Comment on above: Performed By: #### C BC #### [facility] [address] [place] [address] Dr. Mary Ordaz Neutrophils/100 WBC (Bld) 66.5 % Normal 43.0-75.0 [facility] Comment on above: Performed By: #### C BC #### [facility] [address] [place] [address] Dr. Mary Ordaz Platelet mean volume (Bld) [Entitic vol] 10.0 fL Normal 9.5-13.5 [facility] Comment on above: Performed By: #### C BC #### [facility] [address] [place] [address] Dr. Mary Ordaz PLT 273 103/ul Normal 150-450 [facility] Comment on above: Performed By: #### C BC #### [facility] [address] [place] [address] Dr. Mary Ordaz RBC 4.38 106/ul Normal 4.20-5.40 [facility] Comment on above: Performed By: #### C BC #### [facility] [address] [place] [address] Dr. Mary Ordaz WBC 6.2 103/ul Normal 4.0-11.0 [facility] Comment on above: Performed By: #### C BC #### [facility] [address] [place] [address] Dr. Mary Ordaz CRPon 12-26-2021 CRP 0.8 mg/dL Normal <=1.0 [facility] Comment on above: Performed By: #### F T3, CRP, BMP, TSH, LIVER #### [facility] [address] [place] [address] Dr. Mary Ordaz FREE T3on 12-26-2021 FREE T3 2.54 pg/mlL Normal 2.18-3.98 [facility] Comment on above: Performed By: #### F T3, CRP, BMP, TSH, LIVER #### [facility] [address] [place] [address] Dr. Mary Ordaz FREE T4on 12-26-2021 Free T4 [Mass/Vol] 0.88 ng/dL Normal 0.76-1.46 [facility] Comment on above: Performed By: #### F T4 #### [facility] [address] [place] [address] Dr. Mary Ordaz LIVER PROFILEon 12-26-2021 Albumin [Mass/Vol] 3.8 g/dL Normal 3.4-5.0 [facility] Comment on above: Performed By: #### F T3, CRP, BMP, TSH, LIVER #### [facility] [address] [address] [address] Mary Ordaz Albumin/Globulin [Mass ratio] 1.1 {ratio} Normal [facility] Comment on above: Performed By: #### F T3, CRP, BMP, TSH, LIVER #### [facility] [address] [address] [address] Mary Ordaz ALP [Catalytic activity/Vol] 71 U/L Normal 46-116 [facility] Comment on above: Performed By: #### F T3, CRP, BMP, TSH, LIVER #### [facility] [address] [place] [address] Dr. Mary Ordaz ALT [Catalytic activity/Vol] 18 U/L Normal 14-59 [facility] Comment on above: Performed By: #### F T3, CRP, BMP, TSH, LIVER #### [facility] [address] [place] [address] Dr. Mary Ordaz AST [Catalytic activity/Vol] 12 U/L Critically low 15-37 [facility] Comment on above: Performed By: #### F T3, CRP, BMP, TSH, LIVER #### [facility] [address] [address] [address] Mary Ordaz BILI, CONJUGATED 0.1 mg/dL Normal 0.0-0.2 [facility] Comment on above: Performed By: #### F T3, CRP, BMP, TSH, LIVER #### [facility] [address] [address] [address] Mary Ordaz Bilirubin [Mass/Vol] 0.6 mg/dL Normal 0.2-1.0 [facility] Comment on above: Performed By: #### F T3, CRP, BMP, TSH, LIVER #### [facility] [address] [place] [address] Dr. Mary Ordaz Globulin (S) [Mass/Vol] 3.6 g/dL Normal [facility] Comment on above: Performed By: #### F T3, CRP, BMP, TSH, LIVER #### [facility] [address] [place] [address] Dr. Mary Ordaz Protein [Mass/Vol] 7.4 g/dL Normal 6.4-8.2 [facility] Comment on above: Performed By: #### F T3, CRP, BMP, TSH, LIVER #### [facility] [address] [address] [address] Mary Ordaz PROF CHEM 8 (BAS METB)on Anion gap [Moles/Vol] 7.6 mmol/L Normal [facility] Comment on above: Performed By: #### F T3, CRP, BMP, TSH, LIVER #### [facility] [address] [address] [address] Mary Ordaz Calcium [Mass/Vol] 8.9 mg/dL Normal 8.5-10.1 [facility] Comment on above: Performed By: #### F T3, CRP, BMP, TSH, LIVER #### [facility] [address] [place] [address] Dr. Mary Ordaz Chloride [Moles/Vol] 105 mmol/L Normal 98-107 [facility] Comment on above: Performed By: #### F T3, CRP, BMP, TSH, LIVER #### [facility] [address] [address] [address] Mary Ordaz CO2 [Moles/Vol] 30.5 mmol/L Normal 21.0-32.0 [facility] Comment on above: Performed By: #### F T3, CRP, BMP, TSH, LIVER #### [facility] [address] [place] [address] Dr. Mary Ordaz Creatinine [Mass/Vol] 0.80 mg/dL Normal 0.55-1.02 [facility] Comment on above: Performed By: #### F T3, CRP, BMP, TSH, LIVER #### [facility] [address] [place] [address] Dr. Mary Ordaz EGFR-AF TUVALUAN >60 Normal >=60 [facility] Comment on above: Performed By: #### F T3, CRP, BMP, TSH, LIVER #### [facility] [address] [place] [address] Dr. Mary Ordaz EGFR-NON AF TUVALUAN >60 Normal >=60 [facility] Comment on above: Performed By: #### F T3, CRP, BMP, TSH, LIVER #### [facility] [address] [address] [address] Mary Ordaz Glucose [Mass/Vol] 89 mg/dL Normal 74-106 [facility] Comment on above: Performed By: #### F T3, CRP, BMP, TSH, LIVER #### [facility] [address] [address] [address] Mary Ordaz Potassium [Moles/Vol] 4.1 mmol/L Normal 3.5-5.1 [facility] Comment on above: Performed By: #### F T3, CRP, BMP, TSH, LIVER #### [facility] [address] [address] [address] Mary Ordaz Sodium [Moles/Vol] 139 mmol/L Normal 136-145 [facility] Comment on above: Performed By: #### F T3, CRP, BMP, TSH, LIVER #### [facility] [address] [place] [address] Dr. Mary Ordaz Urea nitrogen [Mass/Vol] 9.0 mg/dL Normal 7.0-18.0 [facility] Comment on above: Performed By: #### F T3, CRP, BMP, TSH, LIVER #### [facility] [address] [place] [address] Dr. Mary Ordaz Urea nitrogen/Creatinine [Mass ratio] 11.2 mg/mg Normal [facility] Comment on above: Performed By: #### F T3, CRP, BMP, TSH, LIVER #### [facility] [address] [place] [address] Dr. Mary Ordaz [facility] SED RATE 24 mm/hr Critically high <=20 [facility] Comment on above: Performed By: #### V ITAD, FT4 #### [facility] [address] [place] [address] Dr. Mary Ordaz TSHon 12-26-2021 TSH 2.733 uIU/mL Normal 0.358-3.740 [facility] Comment on above: Performed By: #### V ITAD, FT4 #### [facility] [address] [address] [address] Mary Ordaz CBC AUTO DIFFon 07-13-2021 BASO # 0.0 103/ul Normal 0.0-0.1 [facility] Comment on above: Performed By: #### C BC #### [facility] [address] [address] [address] Mary Ordaz Basophils/100 WBC (Bld) 0.3 % Normal 0.2-2.0 [facility] Comment on above: Performed By: #### C BC #### [facility] [address] [place] [address] Dr. Mary Ordaz EO # 0.3 103/ul Normal 0.0-0.7 [facility] Comment on above: Performed By: #### C BC #### [facility] [address] [place] [address] Dr. Mary Ordaz Eosinophils/100 WBC (Bld) 2.5 % Normal 0.9-7.0 [facility] Comment on above: Performed By: #### C BC #### [facility] [address] [place] [address] Dr. Mary Ordaz Erythrocyte distribution width (RBC) [Ratio] 11.9 % Normal 11.0-15.0 [facility] Comment on above: Performed By: #### C BC #### [facility] [address] [place] [address] Dr. Mary Ordaz Hematocrit (Bld) [Volume fraction] 41.3 % Normal 36.0-48.0 [facility] Comment on above: Performed By: #### C BC #### [facility] [address] [place] [address] Dr. Mary Ordaz Hemoglobin (Bld) [Mass/Vol] 13.4 g/dL Normal 12.0-16.0 [facility] Comment on above: Performed By: #### C BC #### [facility] [address] [place] [address] Dr. Mary Ordaz IG # 0.05 10e3/ul Critically high 0.00-0.03 [facility] Comment on above: Performed By: #### C BC #### [facility] [address] [place] [address] Dr. Mary Ordaz IG % 0.4 % Normal 0.0-0.5 [facility] Comment on above: Performed By: #### C BC #### [facility] [address] [place] [address] Dr. Mary Ordaz LYMPH # 1.2 103/ul Normal 1.2-3.8 [facility] Comment on above: Performed By: #### C BC #### [facility] [address] [place] [address] Dr. Mary Ordaz Lymphocytes/100 WBC (Bld) 9.8 % Critically low 20.5-60.0 [facility] Comment on above: Performed By: #### C BC #### [facility] [address] [place] [address] Dr. Mary Ordaz MANUAL DIFF REQ NO Normal [facility] Comment on above: Performed By: #### C BC #### [facility] [address] [place] [address] Dr. Mary Ordaz MCH (RBC) [Entitic mass] 30.5 pg Normal 26.7-34.0 [facility] Comment on above: Performed By: #### C BC #### [facility] [address] [place] [address] Dr. Mary Ordaz MCHC (RBC) [Mass/Vol] 32.4 g/dL Normal 29.9-35.2 [facility] Comment on above: Performed By: #### C BC #### [facility] [address] [place] [address] Dr. Mary Ordaz MCV (RBC) [Entitic vol] 93.9 fL Normal 81.0-99.0 [facility] Comment on above: Performed By: #### C BC #### [facility] [address] [place] [address] Dr. Mary Ordaz MONO # 0.7 103/ul Normal 0.3-0.8 [facility] Comment on above: Performed By: #### C BC #### [facility] [address] [address] [address] Mary Ordaz Monocytes/100 WBC (Bld) 5.6 % Normal 1.7-12.0 [facility] Comment on above: Performed By: #### C BC #### [facility] [address] [address] [address] Mary Ordaz NEUT # 9.6 103/ul Critically high 1.4-6.5 [facility] Comment on above: Performed By: #### C BC #### [facility] [address] [address] [address] Mary Ordaz Neutrophils/100 WBC (Bld) 81.4 % Critically high 43.0-75.0 [facility] Comment on above: Performed By: #### C BC #### [facility] [address] [place] [address] Dr. Mary Ordaz Platelet mean volume (Bld) [Entitic vol] 10.2 fL Normal 9.5-13.5 [facility] Comment on above: Performed By: #### C BC #### [facility] [address] [address] [address] Mary Ordaz PLT 224 103/ul Normal 150-450 [facility] Comment on above: Performed By: #### C BC #### [facility] [address] [place] [address] Dr. Mary Ordaz RBC 4.40 106/ul Normal 4.20-5.40 [facility] Comment on above: Performed By: #### C BC #### [facility] [address] [place] [address] Dr. Mary Ordaz WBC 11.8 103/ul Critically high 4.0-11.0 [facility] Comment on above: Performed By: #### C BC #### [facility] [address] [place] [address] Dr. Mary Ordaz FREE T3on 07-13-2021 FREE T3 2.91 pg/mlL Normal 2.18-3.98 [facility] Comment on above: Performed By: #### V ITAD, FT4 #### [facility] [address] [address] [address] Mary Ordaz FREE T4on 07-13-2021 Free T4 [Mass/Vol] 0.99 ng/dL Normal 0.76-1.46 [facility] Comment on above: Performed By: #### V ITAD, FT4 #### [facility] [address] [address] [address] Mary Ordaz GLYCOHEMOGLOBIN A1Con 2021 ADA RECOMMENDATION SEE BELOW Normal [facility] Comment on above: Result Comment: ADA RECOMMENDED LIMIT 4.0 - 6.0 ADA THERAPEUTIC TARGET < 7.0 ACTION SUGGESTED > 7.0 Performed By: #### A 1C #### [facility] [address] [place] [address] Dr. Mary Ordaz Glucose [Mass/Vol] 114 mg/dL Normal [facility] Comment on above: Performed By: #### A 1C #### [facility] [address] [place] [address] Dr. Mary Ordaz HbA1c (Bld) [Mass fraction] 5.6 % Normal 4.5-6.2 [facility] Comment on above: Performed By: #### A 1C #### [facility] [address] [place] [address] Dr. Mary Ordaz LIPID PROFILEon 07-13-2021 CHOL-HDL RATIO NORM SEE BELOW Normal [facility] Comment on above: Result Comment: 3.3 - 4.4 LOW RISK 4.4 - 7.1 AVERAGE RISK 7.1 - 11.0 MODERATE RISK >11.0 HIGH RISK Performed By: #### V ITAD, FT4 #### [facility] [address] [place] [address] Dr. Mary Ordaz Cholesterol [Mass/Vol] 150 mg/dL Normal <=200 [facility] Comment on above: Performed By: #### V ITAD, FT4 #### [facility] [address] [place] [address] Dr. Mary Ordaz Cholesterol in HDL [Mass/Vol] 53 mg/dL Normal 40-60 [facility] Comment on above: Performed By: #### V ITAD, FT4 #### [facility] [address] [address] [address] Mary Ordaz Cholesterol in LDL [Mass/Vol] 89.8 mg/dL Normal [facility] Comment on above: Performed By: #### V ITAD, FT4 #### [facility] [address] [address] [address] Mary Ordaz Cholesterol.total/Cho lesterol in HDL [Mass ratio] 2.8 {ratio} Normal [facility] Comment on above: Performed By: #### V ITAD, FT4 #### [facility] [address] [address] [address] Mary Ordaz HDL NORMAL > or = 60 mg/dl - LO W CARDIOVASCULAR RISK <40 mg/dl - HIGH CARDIOVASCULAR RISK Normal [facility] Comment on above: Performed By: #### V ITAD, FT4 #### [facility] [address] [place] [address] Dr. Mary Ordaz LDL CALC NORMAL SEE BELOW Normal [facility] Comment on above: Result Comment: <100 mg/dl OPTIMAL 100 - 129 mg/dl NEAR OR ABOVE OPTIMAL 130 - 159 mg/dl BORDERLINE HIGH 160 - 189 mg/dl HIGH >190 mg/dl VERY HIGH Performed By: #### V ITAD, FT4 #### [facility] [address] [place] [address] Dr. Mary Ordaz Triglyceride [Mass/Vol] 36 mg/dL Normal <=150 [facility] Comment on above: Performed By: #### V ITAD, FT4 #### [facility] [address] [place] [address] Dr. Mary Ordaz VLDL CALC 7.2 mg/dL Normal [facility] [place] [facility] Comment on above: Performed By: #### V ITAD, FT4 #### [facility] [address] [place] [address] Dr. Mary Ordaz LIVER PROFILEon 07-13-2021 Albumin [Mass/Vol] 3.5 g/dL Normal 3.4-5.0 [facility] Comment on above: Performed By: #### V ITAD, FT4 #### [facility] [address] [address] [address] Mary Ordaz Albumin/Globulin [Mass ratio] 0.9 {ratio} Normal [facility] [place] [facility] Comment on above: Performed By: #### V ITAD, FT4 #### [facility] [address] [address] [address] Mary Ordaz ALP [Catalytic activity/Vol] 76 U/L Normal 46-116 [facility] [place] [facility] Comment on above: Performed By: #### V ITAD, FT4 #### [facility] [address] [address] [address] Mary Ordaz ALT [Catalytic activity/Vol] 18 U/L Normal 14-59 [facility] [place] [facility] Comment on above: Performed By: #### V ITAD, FT4 #### [facility] [address] [place] [address] Dr. Mary Ordaz AST [Catalytic activity/Vol] 12 U/L Critically low 15-37 [facility] [place] [facility] Comment on above: Performed By: #### V ITAD, FT4 #### [facility] [address] [place] [address] Dr. Mary Ordaz BILI, CONJUGATED 0.1 mg/dL Normal 0.0-0.2 [facility] Comment on above: Performed By: #### V ITAD, FT4 #### [facility] [address] [place] [address] Dr. Mary Ordaz Bilirubin [Mass/Vol] 0.6 mg/dL Normal 0.2-1.0 [facility] [place] [facility] Comment on above: Performed By: #### V ITAD, FT4 #### [facility] [address] [place] [address] Dr. Mary Ordaz Globulin (S) [Mass/Vol] 3.9 g/dL Normal [facility] [place] [facility] Comment on above: Performed By: #### V ITAD, FT4 #### [facility] [address] [place] [address] Dr. Mary Ordaz Protein [Mass/Vol] 7.4 g/dL Normal 6.4-8.2 [facility] Comment on above: Performed By: #### V ITAD, FT4 #### [facility] [address] [place] [address] Dr. Mary Ordaz PROF CHEM 8 (BAS METB)on Anion gap [Moles/Vol] 12.8 mmol/L Normal [facility] Comment on above: Performed By: #### V ITAD, FT4 #### [facility] [address] [place] [address] Dr. Mary Ordaz Calcium [Mass/Vol] 8.8 mg/dL Normal 8.5-10.1 [facility] Comment on above: Performed By: #### V ITAD, FT4 #### [facility] [address] [place] [address] Dr. Mary Ordaz Chloride [Moles/Vol] 104 mmol/L Normal 98-107 [facility] [place] [facility] Comment on above: Performed By: #### V ITAD, FT4 #### [facility] [address] [place] [address] Dr. Mary Ordaz CO2 [Moles/Vol] 26.8 mmol/L Normal 21.0-32.0 [facility] Comment on above: Performed By: #### V ITAD, FT4 #### [facility] [address] [place] [address] Dr. Mary Ordaz Creatinine [Mass/Vol] 0.92 mg/dL Normal 0.55-1.02 [facility] [place] [facility] Comment on above: Performed By: #### V ITAD, FT4 #### [facility] [address] [place] [address] Dr. Mary Ordaz EGFR-AF TUVALUAN >60 Normal >=60 [facility] Comment on above: Performed By: #### V ITAD, FT4 #### [facility] [address] [place] [address] Dr. Mary Ordaz EGFR-NON AF TUVALUAN >60 Normal >=60 [facility] Comment on above: Performed By: #### V ITAD, FT4 #### [facility] [address] [place] [address] Dr. Mary Ordaz Glucose [Mass/Vol] 84 mg/dL Normal 74-106 [facility] Comment on above: Performed By: #### V ITAD, FT4 #### [facility] [address] [place] [address] Dr. Mary Ordaz Potassium [Moles/Vol] 3.6 mmol/L Normal 3.5-5.1 [facility] [place] [facility] Comment on above: Performed By: #### V ITAD, FT4 #### [facility] [address] [place] [address] Dr. Mary Ordaz Sodium [Moles/Vol] 140 mmol/L Normal 136-145 [facility] Comment on above: Performed By: #### V ITAD, FT4 #### [facility] [address] [place] [address] Dr. Mary Ordaz Urea nitrogen [Mass/Vol] 13.0 mg/dL Normal 7.0-18.0 [facility] [place] [facility] Comment on above: Performed By: #### V ITAD, FT4 #### [facility] [address] [place] [address] Dr. Mary Ordaz Urea nitrogen/Creatinine [Mass ratio] 14.1 mg/mg Normal [facility] [place] [facility] Comment on above: Performed By: #### V ITAD, FT4 #### [facility] [address] [place] [address] Dr. Mary Ordaz TSHon 07-13-2021 TSH 2.648 uIU/mL Normal 0.358-3.740 [facility] Comment on above: Performed By: #### V ITAD, FT4 #### [facility] [address] [place] [address] Dr. Mary Ordaz TSH RANGE SEE BELOW Normal [facility] Comment on above: Result Comment: <0.3 4 UIU/ml HYPERTHYROID 0.34-5.60 UIU/ml EUTHYROID >5.60 UIU/ml HYPOTHYROID Performed By: #### V ITAD, FT4 #### [facility] [address] [place] [address] Dr. Mary Ordaz VITAMIN D 25 OHon 07-13-2021 VIT D 25-OH 29.6 ng/mL Normal [facility] Comment on above: Performed By: #### V MORIAHAD, FT4 #### [facility] [address] [place], [place] [address] Dr. Mary Ordaz VIT D RANGES SEE BELOW Normal [facility] [place] [facility] Comment on above: Result Comment: <20 ng/mL Vit D deficient 20 - <30 ng/mL Vit D insufficient 30 - 100 ng/mL Vit D sufficient >100 ng/mL Potential Toxicity Performed By: #### V SHAHID, FT4 #### [facility] [address] [place], [place] [address] Dr. Mary Ordaz Vital Signs Date Time Vital Sign Value Performing Clinician Faci lity 01-11-2022 09:37-0500 Body height 162.6 cm Abbie Early MD Work Phone: [facility] 01-11-2022 09:37-0500 Body temperature 97.2 [degF] Abbie Early MD Work Phone: [facility] 01-11-2022 09:37-0500 Body weight 75.07 kg Abbie Early MD Work Phone: [facility] 01-11-2022 09:37-0500 Diastolic blood pressure 84 mm[Hg] Abbie Early MD Work Phone: [facility] 01-11-2022 09:37-0500 Heart rate 79 /min Abbie Early MD Work Phone: [facility] 01-11-2022 09:37-0500 Systolic blood pressure 132 mm[Hg] Abbie Early MD Work Phone: [facility] Encounters Encounter Date Encounter Type Care Provider Facility Start: 02-26-2023 End: 02-26-2023 ambulatory DIEGO FAIR Not Available Start: 02-01-2023 End: 02-02-2023 ambulatory DIEGO TREJOERER Not Available Start: 01-23-2023 End: 01-24-2023 ambulatory DIEGO TREJOERER Not Available Start: 01-18-2023 End: 01-18-2023 ambulatory DIEGO TREJOERER Not Available Start: 01-11-2022 End: 01-12-[address] [facility] Start: 01-11-2022 End: 01-11-2022 [facility] visit new patient Shania Hagen [facility] Comment on above: New Patient Start: 01-11-2022 End: 01-11-2022 Patient encounter procedure Abbie Early MD Work Phone: [facility] Comment on above: Fibromyalgia (Primar y Dx); Flatulence; Postprandial bloating; Hives; Lupus (HCC); Hypertension, unspecified type; B12 deficiency; Toxin exposure; Mold exposure; Exposure to mercury; Chronic fatigue; Suspected Lyme disease; Family history of diabetes mellitus in father; History of gestational diabetes Start: 12-26-2021 End: 12-27-[address] DIEGO FAIR Facility:[facility] Start: 07-15-2021 Encounter for genera l adult medical examination without abnormal findings DR DIEGO FAIR [facility] [place] [facility] Start: 07-13-2021 End: 07-14-[address] DIEGO FAIR Facility:[facility] Start: 07-13-2021 End: 07-14-2021 Encounter for general adult medical examination without abnormal findings DR DIEGO FAIR Facility:[facility] Plan of Treatment Date Care Activity Detail Author Start: 01-11-2022 End: 03-13-2022 25-hydroxyvitamin D3 [Mass/volume] in Serum or Plasma [facility] Work Phone: Comment on above: Expected: 01/11/2022 , Expires: 03/13/2022 Start: 01-11-2022 End: 03-13-2022 Arsenic [Mass/volume] in Blood [facility] Work Phone: Comment on above: Expected: 01/11/2022 , Expires: 03/13/2022 Start: 01-11-2022 End: 03-13-2022 BABESIA CLINTON IGG/IGM [facility] Work Phone: Comment on above: Expected: 01/11/2022 , Expires: 03/13/2022 Start: 01-11-2022 End: 03-13-2022 BARTONELLA AB PANEL [facility] Work Phone: Comment on above: Expected: 01/11/2022 , Expires: 03/13/2022 Start: 01-11-2022 End: 03-13-2022 Borrelia burgdorferi IgG and IgM panel - Serum [facility] Work Phone: Comment on above: Expected: 01/11/2022 , Expires: 03/13/2022 Start: 01-11-2022 End: 03-13-2022 Comprehensive metabolic 2000 panel - Serum or Plasma [facility] Work Phone: Comment on above: Expected: 01/11/2022 , Expires: 03/13/2022 Start: 01-11-2022 End: 03-13-2022 COPPER BLOOD [facility] Work Phone: Comment on above: Expected: 01/11/2022 , Expires: 03/13/2022 Start: 01-11-2022 End: 03-13-2022 EHRLICHIA CHAF ABS [facility] Work Phone: Comment on above: Expected: 01/11/2022 , Expires: 03/13/2022 Start: 01-11-2022 End: 03-13-2022 Narciso Guevara virus capsid IgG Ab [Units/volume] in Serum [facility] Work Phone: Comment on above: Expected: 01/11/2022 , Expires: 03/13/2022 Start: 01-11-2022 End: 03-13-2022 Narciso Guevara virus capsid IgM Ab [Units/volume] in Serum [facility] Work Phone: Comment on above: Expected: 01/11/2022 , Expires: 03/13/2022 Start: 01-11-2022 End: 03-13-2022 Narciso Guevara virus early Ab [Units/volume] in Serum [facility] Work Phone: Comment on above: Expected: 01/11/2022 , Expires: 03/13/2022 Start: 01-11-2022 End: 03-13-2022 Narciso Guevara virus nuclear Ab [Units/volume] in Serum [facility] Work Phone: Comment on above: Expected: 01/11/2022 , Expires: 03/13/2022 Start: 01-11-2022 End: 03-13-2022 Gamma glutamyl transferase [Enzymatic activity/volume] in Serum or Plasma [facility] Work Phone: Comment on above: Expected: 01/11/2022 , Expires: 03/13/2022 Start: 01-11-2022 End: 03-13-2022 GLIADIN (DEAMIDATED) AB, IGA [facility] Work Phone: Comment on above: Expected: 01/11/2022 , Expires: 03/13/2022 Start: 01-11-2022 End: 03-13-2022 GLIADIN (DEAMIDATED) AB, IGG [facility] Work Phone: Comment on above: Expected: 01/11/2022 , Expires: 03/13/2022 Start: 01-11-2022 End: 03-13-2022 Hemoglobin A1c in Blood [facility] Work Phone: Comment on above: Expected: 01/11/2022 , Expires: 03/13/2022 Start: 01-11-2022 End: 03-13-2022 Homocysteine [Moles/volume] in Serum or Plasma [facility] Work Phone: Comment on above: Expected: 01/11/2022 , Expires: 03/13/2022 Start: 01-11-2022 End: 03-13-2022 Insulin [Units/volume] in Serum or Plasma [facility] Work Phone: Comment on above: Expected: 01/11/2022 , Expires: 03/13/2022 Start: 01-11-2022 End: 03-13-2022 Lead [Mass/volume] in Blood [facility] Work Phone: Comment on above: Expected: 01/11/2022 , Expires: 03/13/2022 Start: 01-11-2022 End: 03-13-2022 MAGNESIUM RBC [facility] Work Phone: Comment on above: Expected: 01/11/2022 , Expires: 03/13/2022 Start: 01-11-2022 End: 03-13-2022 Mercury [Mass/volume] in Blood [facility] Work Phone: Comment on above: Expected: 01/11/2022 ,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 a benefit to dividing the 4 minutes bursts throughout the day vs. all at once. Stress Management: 1) Please look into this Heart Rate Variability BioFeedback Tool (www.heartmath.org). You can see the research that has been put into this very valuable tool under the Resources and Research tabs. This can be used as an cynthia on your smart phone. You will need to buy a sensor that plugs right into the phone for about $100. First, get one of the Heart Math booklets off [employer] that fits your 'go to' emotion - Transforming Anger, Anxiety, Stress, Depression, or PTSD. Five minutes 3X a day is more effective than 15 minutes in one sitting. 2) A regular, daily meditation practice of at least 15-20 minutes will change your brain--as well as your genes! Preliminary studies demonstrate gene expression is modified in those who meditate regularly leading to down-regulation of pro-inflammatory genes. This results in reduced inflammation, as well as improvements in the body's response to stress via the hormone cortisol, in the intervention groups vs. the controls. Although more research is needed, these findings suggest a definite role for meditation in the treatment and prevention of chronic inflammatory conditions. Behavioral Health Therapist: If I recommended counseling or individual therapy, please schedule an individual appointment with our Functional Medicine Behavioral Health Therapist LAY PACHECO OR LC VENTURA after your visit today. The Behavioral Health Therapist helps patients identify and understand feelings and behaviors, experience the process of making positive change, and gain healthy coping skills. Health Coaching: Please consider scheduling with our [facility] health coaches for a phone or virtual visit for accountability, goal setting and help with behavior job change crew member the next 6-8 weeks to be successful with your goals. [phone]. Smart phone apps to begin a meditative practice: Headspace (free for first 10 days) Insight Meditation Timer- (Free)-Great all-around cynthia to use for guided meditations of many different types and lengths or just to use as a tool to time and track your meditation practice. This is my absolute favorite! Calm- (Free) Walking Meditations-($1.99)- Get your walk AND meditation done together. A good way to start out for individuals who feel they just can't sit still to begin a meditative practice. Medications/Supplements Recommended: Orders Placed This Encounter Magnesium Glycinate 120mg - 90 ct. (Pure Encapsulations) Sig: Take 4 capsules daily at bedtime Methylcobalamin B12 5000mcg (Klaire/Prothera) Sig: Take 1 tablet by mouth once daily. OmegAvail [id number] (Designs for Health) Sig: Take one softgel daily. PhytoMulti (Metagenics) Sig: Take 2 tablets daily with food Vitamin D3 5000 U (Pure Encapsulations) Sig: Take 1 capsule by mouth daily with food. Refill: 0 I recommend the supplements from the [facility] Online Store at [email or web address]://[email or web address].[email or web address]/ as we have thoroughly evaluated the research and use only highest quality supplements. Healthy Living Shop [facility] offers an easy to use, convenient way to order supplementation recommended by your provider through the [facility]. All of the products offered are considered high-quality, and adhere to specific criteria for quality and effectiveness including good manufacturing practices, use of clean products, free of fillers, binders, and other antigens. In addition, we follow third libertarian analysis for independent verification of active ingredients. Get started by following three easy steps: Visit the following webpage: [email or web address] Medical.[email or web address]/ [facility] Statements on this site have not been evaluated by the Food and Drug Administration Dr. Solitario Hardin is an employee of [facility]. In addition, he is the President of [employer]. store.[email or web address] Create an account: Enter your first name, last name, email address which will be your username Create password Select a referring physician from the dropdown box. If they are not listed, select other If you are a new patient, enter the following provider code: functional Order recommended supplementation Enter the supplement name in the search box Add all supplements to your cart and proceed to checkout. Orders of $100 or more qualify for free shipping. *Please allow 5-7 business days for delivery. For issues with your MRN please call [phone] During the next 6-8 weeks you'll be working on your diet plan discussed with our student support counselor, allowing for gentle detoxification and decreasing inflammation - while we are gathering your lab results and combining those with your complete history to formulate a very personalized treatment plan. LAB results: Due to the complexity of the testing performed, we are not able to review labs via Aptiblet or over the phone, but please know, if any of your labs are critical we will contact you. Otherwise, we will review all your labs at your next visit. We will go over a lot of information during your follow up visit. Also make sure to schedule with the student support counselor (this will not happen automatically). Potential future labs: Any milog labs ordered take about 4 weeks to return. Do them as soon as possible so that we have the results before your next appointment. You can access them on the milog website and it can be beneficial if you review them prior to your next visit. www.IntroNet.net. Read about NutrEval if this was ordered. Abbie Early MD Time spend with patient: I spent 74 minutes minutes of face to face time with the patient. At least 50% of this time was spent preparing to see the patient, [id number] patient care, completing clinical documentation, obtaining and/or reviewing separately obtained history, performing a medically appropriate examination, counseling and educating the patient/family/caregiver, and ordering medications, tests, or procedures documented in this encounter [facility] 01-11-2022 History of Presen t illness Narrative GROUP HEALTH FOREIGN COLLECTION CLERK COHORT IN PERSON Patient was part of an in-person, group health men's golf coach session. Patient received education and participated in discussion about modifiable lifestyle factors and healthy habits, with emphasis on the role of the health men's golf coach within the functional medicine model and the Wheel of Wellness. Other topics of discussion included Functional Medicine process and scheduling for follow-up visits and support prior to next visit. ............................... ............................... ............................... .......... FOLLOW UP: 30-Minute Consultation with Health Vp Platforms within 1-2 weeks Time Spent with Patient: 30 minutes Signed by: Shana Emery [facility] documented in this encounter [facility] 01-11-2022 Instructions Shana Emery [facility] ED - 01/11/2022 9:31 AM EST Images from the original note were not included. [place] [facility] HEALTH FOREIGN COLLECTION CLERK FOLLOW-UP At the [facility], we focus on the person as a whole: Mind, Body, and Spirit. Working with your Health Vp Platforms on a regular basis can help you prioritize your next steps and build a strong foundation for healing. Our goal is to ask the right questions while empowering you to discover your own solutions and determine your own path for creating the health you desire. Our focus is on establishing your desired outcomes, working with you to overcome challenges and on determining practical action steps for implementing lifestyle changes. Staff Health Vp Platforms Follow-Up Timeframe: Within 1-2 Weeks with Functional Medicine Health Vp Platforms (Shana Bae or Yaima) Schedule your initial 1:1 health coaching appointment and/or Mindfulness group coaching session For 1:1 appointments: schedule by calling the appointment center ([phone] option #1) or through [email or web address] self-scheduling For Mindfulness group coaching: register at [email or web address] 2. Sign up for the [facility] to order your supplements 3. Create a Sahare[facility] account to access the Functional Health Coaching Portal Review the Wheel of Wellness self-assessment tool in preparation for your first 1:1 appointment How to Access the Functional Health Coaching Portal: To access [facility], please visit: [email or web address] to create a new account. Step 1: Create Your Account: Complete the following mayfield: username, password, email address, first name & last name. Click 'Create My New Account'. A message will display. Click continue. Step 2: Verify Your Account: Check your email for an email from [employer]. In the email, click the link provided to launch [employer] and complete registration. Step 3: Enroll in the 'Functional Health Coaching Portal'. Once you have launched [employer], hover over the Find Learning tab, and click on the drop-down option 'Courses'. Search for the course Functional Health Coaching Portal in the search field. In the search results, click the link to access the course. Step 4: Enter the Enrollment [facility] Functional Coaching (this is case sensitive). Step 5: To login after enrollment, visit [email or web address]. Login under 'Non-Employee Login' using the username and password from step #1. If you have difficulty accessing this course, please email [email or web address] ADDITIONAL INSTRUCTIONS: How to Contact Your Functional Medicine Team (Open M-F 8am-5pm): EnhanceWorksharAmpIdea is the BEST form of communication to reach the Functional Medicine Team, see test results and request refills. Please allow 72 business hours for a response. Directions for signing up are included in your New Patient Folder. (Or you can go to [email or web address]) Ordering Supplements: Supplements can be ordered from the [facility]'s Online Store: [email or web address]/#login New patients to the Healthy Living Shop will need to enter the provider code FUNCTIONAL to register their account. documented in this encounter [facility] Evaluation note Diagnosis Fibromyalgia- Primary Mylagia and myositis, unspecified Flatulence Flatulence, eructation, and gas pain Postprandial bloating Flatulence, eructation, and gas pain Hives Urticaria, unspecified Lupus (HCC) Systemic lupus erythematosus Hypertension, unspecified type B12 deficiency Other B-complex deficiencies Toxin exposure Contact with and (suspected) exposure to other potentially hazardous substances Mold exposure Contact with and (suspected) exposure to mold Exposure to mercury Contact with and (suspected) exposure to other hazardous metals Chronic fatigue Other malaise and fatigue Suspected Lyme disease Family history of diabetes mellitus in father History of gestational diabetes Personal history of gestational diabetes [facility] ([facility])- Primary Systemic lupus erythematosus Postprandial bloating Flatulence, eructation, and gas pain Fibromyalgia Mylagia and myositis, unspecified Chronic fatigue Other malaise and fatigue Dietary counseling and surveillance Dietary surveillance and counseling [facility] Encounter for person encountering health services- Primary documented in this encounter [facility] Summary Purpose Family History No Family History Records FoundNo Family History Records FoundNo Family History Records Found Advance Directives No Advanced Directives Records FoundNo Advanced Directives Records FoundNo Advanced Directives Records Found Additional Source Comments Source Comments (unrecognize d section and content) In the event this informatio n is protected by the Federal Confidentiality of Alcohol and Drug Abuse Patient Records regulations: The Federal rules restrict any use of the information to criminally investigate or prosecute any alcohol or drug abuse patient.[facility] the event this information is protected by the Federal Confidentiality of Alcohol and Drug Abuse Patient Records regulations: The Federal rules restrict any use of the information to criminally investigate or prosecute any alcohol or drug abuse patient.[facility] the event this information is protected by the Federal Confidentiality of Alcohol and Drug Abuse Patient Records regulations: The Federal rules restrict any use of the information to criminally investigate or prosecute any alcohol or drug abuse patient.[facility] Reason for Visit (unrecogniz ed section and content) Reason Comments New Patient Care Teams (unrecognized sec tion and content) Human Resources District Manager Relationship Specialty Start Date End Date (Historical), No Pcp PCP - General 04/07/14 Human Resources District Manager Relationship Specialty Start Date End Date (Historical), No Pcp PCP - General 04/07/14 Human Resources District Manager Relationship Specialty Start Date End Date (Historical), No Pcp PCP - General 04/07/14 INFORMATION SOURCE (unrecogn ized section and content) DATE CREATED AUTHOR 01/17/2022 [facility] DATE CREATED AUTHOR AUTHOR'S ORGANIZ ATION 03/14/2022 [facility] DATE CREATED AUTHOR AUTHOR'S ORGANIZ ATION 02/27/2023 [facility] FOR RECORDS PERTAINING TO PATIENTS WHO ARE OR HAVE BEEN ENROLLED IN A CHEMICAL DEPENDENCY/SUBSTANCEABUSE PROGRAM, SOME INFORMATION MAY BE OMITTED. This clinical summary was aggregated from multiple sources. Caution should be exercised in using it in the provision of clinical care. This summary normalizes information from multiple sources, and as a consequence, information in this document may materially change the coding, format and clinical context of patient data. In addition, data may be omitted in some cases. CLINICAL DECISIONS SHOULD BE BASED ON THE PRIMARY CLINICAL RECORDS. [employer] [facility]. provides no warranty or guarantee of the accuracy or completeness of information in this document.
[2023-03-12 08:46] LABS: Estimated Average Glucose 111 mg/dL; Glycohemoglobin A1C 5.5 % (4.5-6.2)
[2023-03-12 08:56] LABS: Free T4 0.96 ng/dL (0.76-1.46)
[2023-03-12 09:00] LABS: Glucose 102 mg/dL (74-106); Thyroid Stimulating Hormone 4.889 uIU/mL (0.358-3.740)
[2023-03-13 09:11] LABS: FSH 8.3 mIU/mL (.); Luteinizing Hormone(LH) 5.4 mIU/mL (.); Progesterone 0.2 ng/mL (.)
[2023-03-13 13:07] LABS: Insulin 19.3 uIU/mL (2.6-24.9)
[2023-03-21 20:09] LABS: Free Testosterone(Direct) 1.1 pg/mL (0.0-4.2); Testosterone 13 ng/dL (4-50)
== END 2023-03-12 07:35 | disposition home or self-care (01) ==
PROVIDERS: PCP Family Medicine
DX: R79.89 Other specified abnormal findings of blood chemistry (principal); R76.8 Other specified abnormal immunological findings in serum; N95.1 Menopausal and female climacteric states
CPT/HCPCS: 36415; 82670; 82947; 83001; 83002; 83036; 83525; 84144; 84402; 84403; 84439; 84443; 84480; 86038

== ENCOUNTER 2023-03-12 16:17 | Outpatient (OUT) | payer OTHER, BC, SELFPAY ==
--- OUTSIDE RECORDS SUMMARY | 2023-03-12 16:22 | XMS_ITS | CCD ---
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 Name Role Phone (Historical), No Pcp Primary Care Provider Unava ilable ABBIE EARLY Attending Unavailable HAGEN, SHANIA Attending Unavailable ABBIE EARLY Referring Unavailable NADERER, DR DIEGO Ashley Attending Unavailable NADERER, DR DIEGO Ashley Admitting Unavailable [...] sources) Ciprofloxacin; Translations: [CIPROFLOXACIN] Drug Allergy 03-31-2014 [facility] (4 sources) Ethanol; Translations: [ALCOHOL] Drug Allergy 03-31-2014 [facility] (1 source) Ciprofloxacin Drug Allergy 06-13-2015 [facility] Repository Medications Completed/Discontinued Medications Medication Drug Class(es) [...] mg by mouth three times daily. [employer] [id number] (AMCAD for [employer]) (1 source) Start: 01-11-2022 [employer] [id number] ([employer]) Take one softgel daily. 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 In the fksxc-kn-olsc of the abdomen there is a small hiatal hernia. Lies osseous structures are intact IMPRESSION: UNREMARKABLE CT SCAN OF THE CHEST ELECTRONICALLY SIGNED BY: Kaushal Gonsales MD Normal Not Available 25(OH)D3 [facility] 2021 25-hydroxyvitamin D3 [Mass/Vol] 38.3 ng/mL Normal 31.0-80.0 [facility] Comment on above: Order Comment: Speci men Type: BLOOD SPECIMEN Ordering Facility: [facility] Address: [address] [place], [place] [address] Result Comment: Clas sification of 25 [place] Vitamin D status: Deficiency/Insufficiency: < or = 30 ng/ml. Sufficiency/Optimal Levels: 31-80 ng/mL Toxicity: > 100 ng/mL. Test performed by chemiluminescent immunoassay. Performed By: #### 2 2293-5, 32493-0 #### [facility] CLIA [id number] 9500 [facility] DESK [id number] [place] [address] [facility] [place] ARSENIC BLDon 01-11-2022 ARSENIC, BLOOD <10.0 Normal <=12.0 [facility] Comment on above: Order Comment: Speci men Type: BLOOD SPECIMEN Ordering Facility: [facility] Address: [address] [place] [address] Result Comment: INTE RPRETIVE INFORMATION: Arsenic, Blood [...] developed and its performance characteristics determined by [facility]. It has not been cleared or approved by the US Food and Drug Administration. This test was performed in a CLIA certified laboratory and is intended for clinical purposes. Performed By: [facility] [address] [place] [address] Knitted Cloth Examiner: Yadiel Lopes MD, PhD Performed By: #### B KIERA HARRINGTON #### [facility] CLIA [id number] [address] [place] [address] B. burgdorferi IgG and IgM p jada (S)on 01-11-2022 B. burgdorferi IgG+IgM Qn (S) Negative Normal Negative [facility] Comment on above: Order Comment: Speci men Type: BLOOD SPECIMEN Ordering Facility: [facility] Address: [address] [phone] Result Comment: Rece nt infection with B. burgdorferi sensu lato cannot be excluded if the specimen collected within four weeks after the onset of signs and symptoms or within six weeks after a known tick exposure. Clinical and epidemiological correlation is required. Performed By: #### 2 2293-5, 32154-4 #### [facility] CLIA [id number] [address] [facility] [id number] [place] [address] OF [facility] BABESIA [place] IGG/IGMon 2021 BABESIA MICROTI, IGG < 1:16 Normal < 1:16 [facility] Comment on above: Order Comment: Order ing Facility: [facility] Address: [address] Result Comment: INTE RPRETIVE INFORMATION: Babesia [...] developed and its performance characteristics determined by [facility]. It has not been cleared or approved by the US Food and Drug Administration. This test was performed in a CLIA certified laboratory and is intended for clinical purposes. Performed By: #### B [facility] #### [facility] CLIA [id number] [address] [place] [address] BABESIA MICROTI, IGM <1:20 Normal <1:20 [facility] Comment on above: Order Comment: Order ing Facility: [facility] Address: [address] [place] [address] Result Comment: INTE RPRETIVE INFORMATION: Babesia microti [...] developed and its performance characteristics determined by [facility]. It has not been cleared or approved by the US Food and Drug Administration. This test was performed in a CLIA certified laboratory and is intended for clinical purposes. Performed By: [facility] [address] [place] [address] Knitted Cloth Examiner: Yadiel Lopes MD, PhD Performed By: #### B [facility] #### [facility] CLIA [id number] [address] [place] [address] BARTONELLA AB PANELon 2021 NURY MTZ IGG AB <1:64 Normal [facility] Comment on above: Order Comment: Speci men Type: BLOOD SPECIMEN Ordering Facility: [facility] Address: [address] [place], [place] [address] Result Comment: INTE RPRETIVE INFORMATION: Bartonella mtz [...] developed and its performance characteristics determined by [facility]. It has not been cleared or approved by the US Food and Drug Administration. This test was performed in a CLIA certified laboratory and is intended for clinical purposes. Performed By: #### B ARTAB, ECHAFF #### [facility] CLIA [id number] [address] [place] [address] NURY MTZ IGM AB < 1:16 Normal [facility] Comment on above: Order Comment: Speci la Type: BLOOD SPECIMEN Ordering Facility: [facility] Address: [address] [place], [place] [address] Result Comment: INTE RPRETIVE INFORMATION: Bartonella mtz [...] developed and its performance characteristics determined by [facility]. It has not been cleared or approved by the US Food and Drug Administration. This test was performed in a CLIA certified laboratory and is intended for clinical purposes. Performed By: [facility] [address] [place] [address] Knitted Cloth Examiner: Yadiel Lopes MD, PhD Performed By: #### B ARTAB, [facility] #### [facility] CLIA [id number] [address] [place] [address] BARTONELLA HENSELAE AB, IGG <1:64 Normal [facility] Comment on above: Order Comment: Leidy tovar Type: BLOOD SPECIMEN Ordering Facility: [facility] Address: [address] [place], [place] [phone] Result Comment: INTE RPRETIVE INFORMATION: Bartonella henselae [...] developed and its performance characteristics determined by [facility]. It has not been cleared or approved by the US Food and Drug Administration. This test was performed in a CLIA certified laboratory and is intended for clinical purposes. Performed By: #### B KIERA HARRINGTON #### [facility] CLIA [id number] [address] [place] [address] BARTONELLA HENSELAE AB, IGM < 1:16 Normal [facility] Comment on above: Order Comment: Speci men Type: BLOOD SPECIMEN Ordering Facility: [facility] Address: [address] [place] [address] Result Comment: INTE RPRETIVE INFORMATION: Bartonella henselae [...] developed and its performance characteristics determined by [facility]. It has not been cleared or approved by the US Food and Drug Administration. This test was performed in a CLIA certified laboratory and is intended for clinical purposes. Performed By: #### B KIERA HARRINGTON #### [facility] CLIA [id number] [address] [place] [address] CNOVon 01-11-2022 CNOV [facility] ) JU MCNAIR ([id number]) 1980 F Date Time Provider Department 01/11/22 9:45 AM ABBIE EARLY [facility] During your visit today, we recorded [...] Take 4 capsules daily at bedtime OmegAvail [id number] ([employer]) Take one softgel daily. Methylcobalamin B12 5000mcg [...] General InfoLast Medical Care:Jan 09, 2022 - [facility] - Yaneth Espinoza [facility] Physician Name:Dr. Solitario MarmolejoLearned about our practice [...] child Experie (more content not included)... Normal [facility] COPPER BLOODon 01-11-2022 Copper [Mass/Vol] 93 ug/dL Normal 80-155 [facility] Comment on above: Order Comment: Speci men Type: BLOOD SPECIMEN Ordering Facility: [facility] Address: [address] Result Comment: This test was developed and its performance characteristics determined by [facility] [place] ([facility]). It has not been cleared or approved by the FDA. -[facility] is regulated under CLIA as qualified to perform high-complexity testing. This test is used for clinical purposes. It should not be regarded as investigational or for research. Performed By: #### 5 763-8, COPPER #### [facility] CLIA [id number] [address] [place] [address] [place] Comprehensive metabolic 2000 panelon 01-11-2022 Albumin [Mass/Vol] 4.3 g/dL Normal 3.9-4.9 [facility] Comment on above: Order Comment: Speci men Type: BLOOD SPECIMEN Ordering Facility: [facility] Address: [address] Performed By: #### 2 2293-5, 52534-5 #### [facility] CLIA [id number] [address] [place] [address] [place] ALP [Catalytic activity/Vol] 63 U/L Normal 34-123 [facility] Comment on above: Order Comment: Speci men Type: BLOOD SPECIMEN Ordering Facility: [facility] Address: [address] Performed By: #### 2 2293-5, 59257-5 #### [facility] CLIA [id number] [address] [place] [address] [place] ALT [Catalytic activity/Vol] 13 U/L Normal 7-38 [facility] Comment on above: Order Comment: Speci men Type: BLOOD SPECIMEN Ordering Facility: [facility] Address: [address] [place], [place] [address] Performed By: #### 2 2293-5, 73382-5 #### [facility] CLIA [id number] [address] [id number] [place] Anion gap [Moles/Vol] 11 mmol/L Normal 9-18 [facility] Comment on above: Order Comment: Speci men Type: BLOOD SPECIMEN Ordering Facility: [facility] Address: [address] [place] [address] Performed By: #### 2 2293-5, 18838-0 #### [facility] CLIA [id number] [address] [place] [address] [place] AST [Catalytic activity/Vol] 14 U/L Normal 13-35 [facility] Comment on above: Order Comment: Speci men Type: BLOOD SPECIMEN Ordering Facility: [facility] Address: [address] [place] [address] Performed By: #### 2 2293-5, 66625-7 #### [facility] CLIA [id number] [address] [place] [address] [place] Bilirubin [Mass/Vol] 0.7 mg/dL Normal 0.2-1.3 [facility] Comment on above: Order Comment: Speci men Type: BLOOD SPECIMEN Ordering Facility: [facility] Address: [address] [place] [address] Performed By: #### 2 2293-5, 29506-1 #### [facility] CLIA [id number] [address] [place] [address] [place] Calcium [Mass/Vol] 9.2 mg/dL Normal 8.5-10.2 [facility] Comment on above: Order Comment: Speci men Type: BLOOD SPECIMEN Ordering Facility: [facility] Address: [address] [place], [place] [address] Performed By: #### 2 2293-5, 76500-2 #### [facility] CLIA [id number] [address] OF [facility] Chloride [Moles/Vol] 104 mmol/L Normal 97-105 [facility] Comment on above: Order Comment: Speci men Type: BLOOD SPECIMEN Ordering Facility: [facility] Address: [address] [place] [address] Performed By: #### 2 2293-5, 49055-8 #### [facility] CLIA [id number] [facility] [address] OF [facility] CO2 [Moles/Vol] 25 mmol/L Normal 22-30 [facility] Comment on above: Order Comment: Speci men Type: BLOOD SPECIMEN Ordering Facility: [facility] Address: [address] [place] [address] Performed By: #### 2 2293-5, 15442-6 #### [facility] CLIA [id number] [address] [place] [address] OF [facility] Creatinine [Mass/Vol] 0.87 mg/dL Normal 0.58-0.96 [facility] Comment on above: Order Comment: Speci men Type: BLOOD SPECIMEN Ordering Facility: [facility] Address: [address] [place] [address] Performed By: #### 2 2293-5, 53185-1 #### [facility] CLIA [id number] [address] [place] [address] OF [facility] ESTIMATED GLOMERULAR FILTRATION RATE 87 mL/min/1.73m??? Normal >=60 [facility] Comment on above: Order Comment: Speci men Type: BLOOD SPECIMEN Ordering Facility: [facility] Address: [address] [place] [address] Result Comment: Jennifer mated Glomerular Filtration Rate [...] actual GFR. Performed By: #### 2 2293-5, 45564-7 #### [facility] CLIA [id number] [address] [place] [address] [place] Glucose [Mass/Vol] 73 mg/dL Low 74-99 [facility] Comment on above: Order Comment: Speci men Type: BLOOD SPECIMEN Ordering Facility: [facility] Address: [address] [place] [address] Result Comment: The [place] Diabetes Association (ADA) provides guidance for cutoff [...] Standards of Medical Care in Diabetes 2016, [place] Diabetes Association. Diabetes Care. 2016.39(Suppl 1). Performed By: #### 2 2293-5, 20330-1 #### [facility] CLIA [id number] [address] [place] [address] [place] Potassium [Moles/Vol] 3.9 mmol/L Normal 3.7-5.1 [facility] Comment on above: Order Comment: Speci men Type: BLOOD SPECIMEN Ordering Facility: [facility] Address: [address] [phone] Performed By: #### 2 2293-5, 53848-6 #### [facility] CLIA [id number] [facility] [place] [address] [place] Protein [Mass/Vol] 6.9 g/dL Normal 6.3-8.0 [facility] Comment on above: Order Comment: Speci men Type: BLOOD SPECIMEN Ordering Facility: [facility] Address: [address] [place] [address] Performed By: #### 2 2293-5, 53397-7 #### [facility] CLIA [id number] [address] [place] [address] [place] Sodium [Moles/Vol] 140 mmol/L Normal 136-144 [facility] Comment on above: Order Comment: Speci men Type: BLOOD SPECIMEN Ordering Facility: [facility] Address: [address] [address] Performed By: #### 2 2293-5, 63131-0 #### [facility] CLIA [id number] [address] [place] [address] [place] Urea nitrogen [Mass/Vol] 11 mg/dL Normal 7-21 [facility] Comment on above: Order Comment: Speci men Type: BLOOD SPECIMEN Ordering Facility: [facility] Address: [address] [place] [address] Performed By: #### 2 2293-5, 83545-9 #### [facility] CLIA [id number] [address] [place] [address] [place] EBV capsid IgG Qn (S)on 12-21 EBV VCA IGG, QUAL Normal [facility] Comment on above: Order Comment: Speci men Type: BLOOD SPECIMEN Ordering Facility: [facility] Address: [address] [place] [address] Result Comment: EBV Antibody to Viral Capsid Antigen IgG result is: 61.1 U/mL Reference range is : 0.00 - 21.9 U/mL Interpretive Information: Narciso - Guevara Virus Antibody to Viral Capsid Antigen, IgG 17.9 U/mL or less: Not Detected 18.0 - 21.9 U/mL: Indeterminate - Repeat testing in 10 - 14 days may be helpful. 22.0 U/mL or greater: Detected Performed at [facility], [place], [place]. Performed By: #### 2 2293-5, 14393-5 #### [facility] CLIA [id number] [address] [place] [address] [place] EBV capsid IgM Qn (S)on 12-21 EBV VCA IGM, QUAL Negative Normal Negative [facility] Comment on above: Order Comment: Speci men Type: BLOOD SPECIMEN Ordering Facility: [facility] Address: [address] [place] [address] Result Comment: No s erological evidence of recent EBV infection. Performed By: #### 2 2293-5, 89513-7 #### [facility] CLIA [id number] [address] [place] [address] [place] EBV early Ab Qn (S)on 2021 EBV EA AB, QUAL Normal [facility] Comment on above: Order Comment: Speci men Type: BLOOD SPECIMEN Ordering Facility: [facility] Address: [address] [place] [address] Result Comment: EBV Antibody to Early (D) Antigen IgG result is: <5.0 U/ml Reference range is: 0.00 - 10.9 U/mL Interpretive Information: Narciso - Guevara Virus Antibody to Early (D) Antigen, IgG 8.9 U/mL or less: Not Detected 9.0-10.9 U/mL: Indeterminate - Repeat testing in 10 - 14 days may be helpful. 11.0 U/mL or greater: Detected Performed at [facility], [place], [place]. Performed By: #### 2 2293-5, 79538-7 #### [facility] CLIA [id number] [address] [place] [address] OF [facility] EBV nuclear Ab Qn (S)on 12-21 EBV NA AB, QUAL Normal [facility] Comment on above: Order Comment: Speci men Type: BLOOD SPECIMEN Ordering Facility: [facility] Address: [address] [place] [address] Result Comment: EBV Antibody to Nuclear Antigen IgG result is: 45.6 U/mL Reference range is: 0.00 - 21.9 U/mL Interpretive Information: Narciso - Guevara Virus Antibody to Nuclear Antigen, IgG 17.9 U/mL or less: Not Detected 18.0-21.9 U/mL: Indeterminate - Repeat testing in 10 - 14 days may be helpful. 22.0 U/mL or greater: Detected Performed at [facility], [place], [place]. Performed By: #### 2 2293-5, 44374-0 #### [facility] CLIA [id number] [address] [facility] [id number] [place] [address] EHRLICHIA CHAF ABSon 01-11- 022 EHRLICHIA CHAFFEENSIS ANTIBODY, IGG <1:64 Normal <1:64 [facility] Comment on above: Order Comment: Speci men Type: BLOOD SPECIMEN Ordering Facility: [facility] Address: [address] [id number] Result Comment: INTE RPRETIVE INFORMATION: Ehrlichia Chaffeensis [...] developed and its performance characteristics determined by [facility]. It has not been cleared or approved by the US Food and Drug Administration. This test was performed in a CLIA certified laboratory and is intended for clinical purposes. Performed By: #### B KIERA HARRINGTON #### [facility] CLIA [id number] [address] [place] [address] EHRLICHIA CHAFFEENSIS ANTIBODY, IGM < 1:16 Normal < 1:16 [facility] Comment on above: Order Comment: Speci men Type: BLOOD SPECIMEN Ordering Facility: [facility] Address: [address] [place] [address] Result Comment: INTE RPRETIVE INFORMATION: Ehrlichia Chaffeensis [...] developed and its performance characteristics determined by [facility]. It has not been cleared or approved by the US Food and Drug Administration. This test was performed in a CLIA certified laboratory and is intended for clinical purposes. Performed By: [facility] [address] [place] [address] Knitted Cloth Examiner: Yadiel Lopes MD, PhD Performed By: #### B JUANY, ECHAFF #### [id number] [address] [place] [address] GGT SerPl-cCncon 01-11-2022 Gamma glutamyl transferase [Catalytic activity/Vol] 12 U/L Normal 6-46 [facility] Comment on above: Order Comment: Specani tovar Type: BLOOD SPECIMEN Ordering Facility: [facility] Address: [address] [place] [address] Performed By: #### B JUANY, ECHAFF #### [facility] [id number] [address] [place] [address] GLIADIN (DEAMIDATED) AB, IGA on 01-11-2022 GLIAD DEAMIDATED IGA QUAL Negative Normal Negative, Test not Indicated [facility] Comment on above: Order Comment: Leidy tovar Type: BLOOD SPECIMEN Ordering Facility: [facility] Address: [address] [place] [address] Result Comment: This is used as an aid in diagnosis of celiac disease. Clinical correlation is required. The following results were obtained with an [employer] Lite Gliadin IgA SUMMER Gliadin. Gliadin IgA values obtained with different manufacturers' assay methods may not be used interchangeably. The magnitude of the reported IgA levels cannot be correlated to an endpoint titer. Performed By: #### 2 2293-5, 46880-0 #### [facility] CLIA [id number] [address] [place] [address] [place] Gliadin peptide IgA Qn (S) 4 Units Normal <20 [facility] Comment on above: Order Comment: Leidy tovar Type: BLOOD SPECIMEN Ordering Facility: [facility] Address: [address] [address] Performed By: #### 2 2293-, 08577-5 #### [facility] CLIA [id number] [address] [place] [address] [place] GLIADIN (DEAMIDATED) AB, IGG on 01-11-2022 GLIAD DEAMIDATED IGG QUAL Negative Normal Negative, Test not Indicated [facility] Comment on above: Order Comment: Leidy tovar Type: BLOOD SPECIMEN Ordering Facility: [facility] Address: [address] [place] [address] Result Comment: This test is used as an aid in diagnosis of celiac disease in IgA-deficient individuals only. Clinical correlation is required. The following results were obtained with an [employer] QU[employer] Lite Gliadin IgG SUMMER Gliadin. Gliadin IgG values obtained with different manufacturers' assay methods may not be used interchangeably. The magnitude of the reported IgG levels cannot be correlated to an endpoint titer. Performed By: #### 2 2293-, 07196-7 #### [facility] CLIA [id number] [address] [place] [address] [place] Gliadin peptide IgG Qn (S) 3 Units Normal <20 [facility] Comment on above: Order Comment: Speci men Type: BLOOD SPECIMEN Ordering Facility: [facility] Address: [address] [place] [address] Performed By: #### 2 2293-, 18760-6 #### [facility] CLIA [id number] [address] [place] [address] [place] HbA1c (Bld)on 01-11-2022 Average glucose Estimated from glycated hemoglobin (Bld) [Mass/Vol] 97 mg/dL Normal [facility] Comment on above: Order Comment: Leidy la Type: BLOOD SPECIMEN Ordering Facility: [facility] Address: [address] [place] [address] Result Comment: eAG: (Estimated average glucose) is a calculated value from HgbA1c and is exhibit display representative of the average blood glucose level in the last 2-3 month period. Performed By: #### 5 5454-3 #### [facility] CLIA [id number] [address] [place] [address] [place] HbA1c (Bld) [Mass fraction] 5.0 % Normal 4.3-5.6 [facility] Comment on above: Order Comment: Leidy la Type: BLOOD SPECIMEN Ordering Facility: [facility] Address: [address] [place] [address] Result Comment: Amer ican Diabetes Association guidelines indicate that patients with HgbA1c in the range 5.7-6.4% are at increased risk for development of diabetes, and intervention by lifestyle modification may be beneficial. HgbA1c greater or equal to 6.5% is considered diagnostic of diabetes. Performed By: #### 5 5454-3 #### [facility] CLIA [id number] [address] [place] [address] [place] Hcys SerPl-sCncon 01-11-2022 Homocysteine [Moles/Vol] 9.4 umol/L Normal <15.1 [facility] Comment on above: Order Comment: Leidy la Type: BLOOD SPECIMEN Ordering Facility: [facility] Address: [address] [place] [address] Performed By: #### B KIERA HARRINGTON #### [id number] [address] [place] [address] Insulin SerPl-aCncon 022 Insulin Qn 8.8 u[IU]/mL Normal 3.0-25.0 [facility] Comment on above: Order Comment: Leidy la Type: BLOOD SPECIMEN Ordering Facility: [facility] Address: [address] [place] [address] Performed By: #### 2 2293-5, 99369-9 #### [facility] CLIA [id number] [facility] [place] [address] [place] Lead Bld-mCncon 01-11-2022 Lead (Bld) [Mass/Vol] ug/dL Normal <3.5 [facility] Comment on above: Order Comment: Speci men Type: VENOUS BLOOD SPECIMEN Ordering Facility: [facility] Address: [address] [place] [address] Result Comment: The Centers for Disease Control and Prevention (CDC) recommends a blood lead reference value of less than 3.5 ???g/dL (Update of the Blood Lead Reference Value - [facility], 2020). The CDC's updated Recommended Actions Based on Blood Lead Level can be accessed at www.cdc.gov. Consult [facility] Department of Health and/or applicable regulatory agencies for specific guidance on testing follow up and patient management. This test was developed and its performance characteristics determined by [facility] [place] ([facility]). It has not been cleared or approved by the FDA. [facility] is regulated under CLIA as qualified to perform high-complexity testing. This test is used for clinical purposes. It should not be regarded as investigational or for research. Performed By: #### 5 671-3 #### [facility] CLIA [id number] [address] [place] [address] [place] MAGNESIUM RBCon 01-11-2022 Magnesium (RBC) [Moles/Vol] 4.6 mg/dL Normal 4.0-6.5 [facility] Comment on above: Order Comment: Speci men Type: BLOOD SPECIMEN Ordering Facility: [facility] Address: [place] [address] Result Comment: This test was developed and its performance characteristics determined by [facility] [place] ([facility]). It has not been cleared or approved by the FDA. [facility] is regulated under CLIA as qualified to perform high-complexity testing. This test is used for clinical purposes. It should not be regarded as investigational or for research. Performed By: #### 2 2293-5, 67890-8 #### [facility] CLIA [id number] [address] [place] [address] [place] MERCURY BLDon 01-11-2022 MERCURY <2.5 Normal <=10.0 [facility] Comment on above: Order Comment: Speci men Type: BLOOD SPECIMEN Ordering Facility: [facility] Address: [address] [place], [place] [address] Result Comment: INTE RPRETIVE INFORMATION: Mercury, Blood [...] developed and its performance characteristics determined by [facility]. It has not been cleared or approved by the [place] Food and Drug Administration. This test was performed in a CLIA certified laboratory and is intended for clinical purposes. Performed By: [facility] [address] [place] [address] Knitted Cloth Examiner: Yadiel Lopes MD, PhD Performed By: #### 2 2293-5, 31084-9 #### [facility] CLIA [id number] [address] [place] [address] [place] REVERSE T3on 01-11-2022 REVERSE T3 14.7 ng/dL Normal 9.0-27.0 [facility] Comment on above: Order Comment: Specani men Type: BLOOD SPECIMEN Ordering Facility: [facility] Address: [address] [place], [place] [address] Result Comment: INTE RPRETIVE INFORMATION: Triiodothyronine, Reverse - LC-MS/MS This test was developed and its performance characteristics determined by [facility]. It has not been cleared or approved by the US Food and Drug Administration. This test was performed in a CLIA certified laboratory and is intended for clinical purposes. Performed By: [facility] [employer] [address] [place] [address] Knitted Cloth Examiner: Yadiel Lopes MD, PhD Performed By: #### B JUANY, KIERA #### [facility] CLIA [id number] [address] [place] [address] T3Free SerPl-mCncon 20 22 Free T3 [Mass/Vol] 3.3 pg/mL Normal 2.3-4.1 [facility] Comment on above: Order Comment: Speci men Type: BLOOD SPECIMEN Ordering Facility: [facility] Address: [address] [place] [address] Performed By: #### 2 2293-5, 34198-5 #### [facility] CLIA [id number] [address] [place] [address] [place] T4 Free SerPl-mCncon 022 Free T4 [Mass/Vol] 1.1 ng/dL Normal 0.9-1.7 [facility] Comment on above: Order Comment: Speci men Type: BLOOD SPECIMEN Ordering Facility: [facility] Address: [address] Performed By: #### 2 2293-5, 83126-5 #### [facility] IA [id number] [address] [place] [address] [place] THYROGLOBULIN ABon 2 Thyroglobulin Ab Qn 2.9 [IU]/mL Normal <14.4 [facility] Comment on above: Order Comment: Speci men Type: BLOOD SPECIMEN Ordering Facility: [facility] Address: [address] Performed By: #### B ARTAB, KIERA #### [facility] CLIA [id number] [address] [place] [address] THYROID PEROXIDASE ANTIBODY BLOODon 01-11-2022 TPO Ab Qn [IU]/mL Normal <5.6 [facility] Comment on above: Order Comment: Leidy tovar Type: BLOOD SPECIMEN Ordering Facility: [facility] Address: [address] [place] [address] Result Comment: Thyr oid Peroxidase Antibody test is used as an aid in diagnosis of autoimmune thyroid disease. Clinical correlation is required. Performed By: #### 2 2293-5, 44349-2 #### [facility] CLIA [id number] [address] [place] [address] [place] TSH SerPl-aCncon 01-11-2022 TSH Qn 2.100 m[IU]/L Normal 0.270-4.200 [facility] Comment on above: Order Comment: Leidy tovar Type: BLOOD SPECIMEN Ordering Facility: [facility] Address: [address] [place] [address] Result Comment: If t he patient is , TSH reference range varies by gestational period: First Trimester (weeks 9-12): 0.180-2.990 mIU/L Second Trimester: 0.110-3.980 mIU/L Third Trimester: 0.480-4.710 mIU/L Eitan Valente et al. A Practical Approach for the Verifications and Determination of Site- and Trimester-Specific Reference Intervals for Thyroid Function tests in . Thyroid, 2019:29:3:412-420. Bryce Steele, et al. 2017 Guidelines of the [place] Thyroid Association for the Diagnosis and Management of Thyroid Disease during and the . Thyroid, 2017:27:3:315-389. Performed By: #### 2 2293-5, 38130-5 #### [facility] CLIA [id number] [address] [place] [address] [place] Zinc SerPl-mCncon 01-11-2022 Zinc [Mass/Vol] 75 ug/dL Normal 60-120 [facility] Comment on above: Order Comment: Leidy tovar Type: BLOOD SPECIMEN Ordering Facility: [facility] Address: [address] [place] [id number] Result Comment: This test was developed and its performance characteristics determined by [facility] [place] ([facility]). It has not been cleared or approved by the FDA. -[facility] is regulated under CLIA as qualified to perform high-complexity testing. This test is used for clinical purposes. It should not be regarded as investigational or for research. Performed By: #### 5 763-8, COPPER #### [facility] CLIA [id number] [address] [place] tTG IgA Qn (S)on 01-11-2022 TRANSGLUTAMINASE IGA QUAL Negative Normal Negative, Test not Indicated [facility] Comment on above: Order Comment: Leidy tovar Type: BLOOD SPECIMEN Ordering Facility: [facility] Address: [address] [place] [address] Result Comment: The following results were obtained with the [employer]oriava QAUNTA Lite h-tTG IgA SUMMER. h-tTG IgA values obtained with different manufacturers' assay methods may not be used interchangeable. The magnitude of the reported IgA levels cannot be correlated to an endpoint titer. This is used as an aid in diagnosis of celiac disease. Clinical correlation is required. Performed By: #### 2 2293-5, 07539-7 #### [facility] CLIA [id number] [address] [place] [address] [place] tTG IgA Ser-aCncon 2 tTG IgA Qn (S) 8 Units Normal <20 [facility] Comment on above: Order Comment: Speci la Type: BLOOD SPECIMEN Ordering Facility: [facility] Address: [address] [place], [place] [address] Performed By: #### 2 2293-5, 45097-6 #### [facility] CLIA [id number] [address] [place] [address] [place] tTG IgG Qn (S)on 01-11-2022 TRANSGLUTAMINASE IGG QUAL Negative Normal Negative, Test not Indicated [facility] Comment on above: Order Comment: Leidy tovar Type: BLOOD SPECIMEN Ordering Facility: [facility] Address: [address] [place] [address] Result Comment: The following results were obtained with the [employer] QUANTA Lite h-tTG IgG SUMMER. h-tTG IgG values obtained with different manufacturers' assay methods may not be used interchangeable. The magnitude of the reported IgG levels cannot be correlated to an endpoint titer. This test is used as an aid in diagnosis of celiac disease in IgA-deficient individuals only. Clinical correlation is required. Performed By: #### 2 2293-5, 91855-9 #### [facility] CLIA [id number] [address] [place] [address] [place] tTG IgG Ser-aCncon 2 tTG IgG Qn (S) 8 Units Normal <20 [facility] Comment on above: Order Comment: Leidy tovar Type: BLOOD SPECIMEN Ordering Facility: [facility] Address: [address] [place] [address] Performed By: #### 2 2293-5, 57084-5 #### [facility] CLIA [id number] [address] [place] [address] [place] CBC AUTO DIFFon 12-26-2021 BASO # 0.0 103/ul Normal 0.0-0.1 [facility] Comment on above: Performed By: #### C BC #### [facility] [address] [place] [address] Dr. Mary Ordaz Basophils/100 WBC (Bld) 0.3 % Normal 0.2-2.0 [facility] Comment on above: Performed By: #### C BC #### [facility] [address] [place] [address] Dr. Mary Ordaz EO # 0.2 103/ul Normal 0.0-0.7 [facility] Comment on above: Performed By: #### C BC #### [facility] [address] [place] [address] Dr. Mary Ordaz Eosinophils/100 WBC (Bld) 3.4 % Normal 0.9-7.0 [facility] Comment on above: Performed By: #### C BC #### [facility] [address] [place] [address] Dr. Mary Ordaz Erythrocyte distribution width (RBC) [Ratio] 11.6 % Normal 11.0-15.0 [facility] Comment on above: Performed By: #### C BC #### [facility] [address] [place] [address] Dr. Mary Ordaz Hematocrit (Bld) [Volume fraction] 40.6 % Normal 36.0-48.0 [facility] Comment on above: Performed By: #### C BC #### [facility] [address] [place] [address] Dr. Mary Ordaz Hemoglobin (Bld) [Mass/Vol] 13.3 g/dL Normal 12.0-16.0 [facility] Comment on above: Performed By: #### C BC #### [facility] [address] [place] [address] Dr. Mary Ordaz IG # 0.05 10e3/ul Critically high 0.00-0.03 [facility] Comment on above: Performed By: #### C BC #### [facility] [address] [place] [address] Dr. Mary Ordaz IG % 0.8 % Critically high 0.0-0.5 [facility] Comment on above: Performed By: #### C BC #### [facility] [address] [place] [address] Dr. Mary Ordaz LYMPH # 1.4 103/ul Normal 1.2-3.8 [facility] Comment on above: Performed By: #### C BC #### [facility] [address] [place] [address] Dr. Mary Ordaz Lymphocytes/100 WBC (Bld) 23.3 % Normal 20.5-60.0 [facility] Comment on above: Performed By: #### C BC #### [facility] [address] [place] [address] Dr. Mary Ordaz MANUAL DIFF REQ NO Normal [facility] Comment on above: Performed By: #### C BC #### [facility] [address] [place] [address] Dr. Mary Ordaz MCH (RBC) [Entitic mass] 30.4 pg Normal 26.7-34.0 [facility] Comment on above: Performed By: #### C BC #### [facility] [address] [place] [address] Dr. Mary Ordaz MCHC (RBC) [Mass/Vol] 32.8 g/dL Normal 29.9-35.2 [facility] Comment on above: Performed By: #### C BC #### [facility] [address] [place] [address] Dr. Mary Ordaz MCV (RBC) [Entitic vol] 92.7 fL Normal 81.0-99.0 [facility] Comment on above: Performed By: #### C BC #### [facility] [address] [place] [address] Dr. Mary Ordaz MONO # 0.4 103/ul Normal 0.3-0.8 [facility] Comment on above: Performed By: #### C BC #### [facility] [address] [place] [address] Dr. Mary Ordaz Monocytes/100 WBC (Bld) 5.7 % Normal 1.7-12.0 [facility] Comment on above: Performed By: #### C BC #### [facility] [address] [place] [address] Dr. Mary Ordaz NEUT # 4.1 103/ul Normal 1.4-6.5 [facility] Comment on above: Performed By: #### C BC #### [facility] [address] [place] [address] Dr. Mary Ordaz Neutrophils/100 WBC (Bld) 66.5 % Normal 43.0-75.0 [facility] Comment on above: Performed By: #### C BC #### [facility] [address] [place] [address] Dr. Mary Ordaz Platelet mean volume (Bld) [Entitic vol] 10.0 fL Normal 9.5-13.5 [facility] Comment on above: Performed By: #### C BC #### [facility] [address] [place] [address] Dr. Mary Ordaz PLT 273 103/ul Normal 150-450 [facility] Comment on above: Performed By: #### C BC #### [facility] [address] [place] [address] Dr. Mary Ordza RBC 4.38 106/ul Normal 4.20-5.40 [facility] Comment on above: Performed By: #### C BC #### [facility] [address] [place] [address] Dr. Mary Ordaz WBC 6.2 103/ul Normal 4.0-11.0 [facility] Comment on above: Performed By: #### C BC #### [facility] [address] [place] [address] Dr. Mary Ordaz CRPon 12-26-2021 CRP 0.8 mg/dL Normal <=1.0 [facility] Comment on above: Performed By: #### F T3, CRP, BMP, TSH, LIVER #### [facility] [address] [place] [address] Dr. Mary Ordaz FREE T3on 12-26-2021 FREE T3 2.54 pg/mlL Normal 2.18-3.98 [facility] Comment on above: Performed By: #### F T3, CRP, BMP, TSH, LIVER #### [facility] [address] [place] [address] Dr. Mary Ordaz FREE T4on 12-26-2021 Free T4 [Mass/Vol] 0.88 ng/dL Normal 0.76-1.[address] [facility] Comment on above: Performed By: #### F T4 #### [facility] [address] [place] [address] Dr. Mary Ordaz LIVER PROFILEon 12-26-2021 Albumin [Mass/Vol] 3.8 g/dL Normal 3.4-5.[address] [facility] Comment on above: Performed By: #### F T3, CRP, BMP, TSH, LIVER #### [facility] [address] [address] [address] Mary Ordaz Albumin/Globulin [Mass ratio] 1.1 {ratio} Normal [facility] Comment on above: Performed By: #### F T3, CRP, BMP, TSH, LIVER #### [facility] [address] [address] [address] Mary Ordaz ALP [Catalytic activity/Vol] 71 U/L Normal 46-116 [facility] Comment on above: Performed By: #### F T3, CRP, BMP, TSH, LIVER #### [facility] [address] [place] [address] Dr. Mary Ordaz ALT [Catalytic activity/Vol] 18 U/L Normal 14-59 [facility] Comment on above: Performed By: #### F T3, CRP, BMP, TSH, LIVER #### [facility] [address] [place] [address] Dr. Mary Ordaz AST [Catalytic activity/Vol] 12 U/L Critically low 15-37 [facility] Comment on above: Performed By: #### F T3, CRP, BMP, TSH, LIVER #### [facility] [address] [address] [address] Mary Ordaz BILI, CONJUGATED 0.1 mg/dL Normal 0.0-0.2 [facility] Comment on above: Performed By: #### F T3, CRP, BMP, TSH, LIVER #### [facility] [address] [address] [address] Mary Ordaz Bilirubin [Mass/Vol] 0.6 mg/dL Normal 0.2-1.0 [facility] Comment on above: Performed By: #### F T3, CRP, BMP, TSH, LIVER #### [facility] [address] [place] [address] Dr. Mary Ordaz Globulin (S) [Mass/Vol] 3.6 g/dL Normal [facility] Comment on above: Performed By: #### F T3, CRP, BMP, TSH, LIVER #### [facility] [address] [place] [address] Dr. Mary Ordaz Protein [Mass/Vol] 7.4 g/dL Normal 6.4-8.[address] [facility] Comment on above: Performed By: #### F T3, CRP, BMP, TSH, LIVER #### [facility] [address] [address] [address] Mary Ordaz PROF CHEM 8 (BAS METB)on Anion gap [Moles/Vol] 7.6 mmol/L Normal [facility] Comment on above: Performed By: #### F T3, CRP, BMP, TSH, LIVER #### [facility] [address] [address] [address] Mary Ordaz Calcium [Mass/Vol] 8.9 mg/dL Normal 8.5-10.[address] [facility] Comment on above: Performed By: #### F T3, CRP, BMP, TSH, LIVER #### [facility] [address] [place] [address] Dr. Mary Ordaz Chloride [Moles/Vol] 105 mmol/L Normal 98-107 [facility] Comment on above: Performed By: #### F T3, CRP, BMP, TSH, LIVER #### [facility] [address] [address] [address] Mary Ordaz CO2 [Moles/Vol] 30.5 mmol/L Normal 21.0-32.0 [facility] Comment on above: Performed By: #### F T3, CRP, BMP, TSH, LIVER #### [facility] [address] [place] [address] Dr. Mary Ordaz Creatinine [Mass/Vol] 0.80 mg/dL Normal 0.55-1.02 [facility] Comment on above: Performed By: #### F T3, CRP, BMP, TSH, LIVER #### [facility] [address] [place] [address] Dr. Mary Ordaz EGFR-AF UKRAINIAN >60 Normal >=60 [facility] Comment on above: Performed By: #### F T3, CRP, BMP, TSH, LIVER #### [facility] [address] [place] [address] Dr. Mary Ordaz EGFR-NON AF UKRAINIAN >60 Normal >=60 [facility] Comment on above: Performed By: #### F T3, CRP, BMP, TSH, LIVER #### [facility] [address] [address] [address] Mary Ordaz Glucose [Mass/Vol] 89 mg/dL Normal 74-106 [facility] Comment on above: Performed By: #### F T3, CRP, BMP, TSH, LIVER #### [facility] [address] [address] [address] Mary Ordaz Potassium [Moles/Vol] 4.1 mmol/L Normal 3.5-5.1 [facility] Comment on above: Performed By: #### F T3, CRP, BMP, TSH, LIVER #### [facility] [address] [address] [address] Mary Ordaz Sodium [Moles/Vol] 139 mmol/L Normal 136-145 [facility] Comment on above: Performed By: #### F T3, CRP, BMP, TSH, LIVER #### [facility] [address] [place] [address] Dr. Mary Ordaz Urea nitrogen [Mass/Vol] 9.0 mg/dL Normal 7.0-18.0 [facility] Comment on above: Performed By: #### F T3, CRP, BMP, TSH, LIVER #### [facility] [address] [place] [address] Dr. Mary Ordaz Urea nitrogen/Creatinine [Mass ratio] 11.2 mg/mg Normal [facility] Comment on above: Performed By: #### F T3, CRP, BMP, TSH, LIVER #### [facility] [address] [place] [address] Dr. Mary Ordaz SED [facility] SED RATE 24 mm/hr Critically high <=20 [facility] Comment on above: Performed By: #### V ITAD, FT4 #### [facility] [address] [place] [address] Dr. Mary Ordaz TSHon 12-26-2021 TSH 2.733 uIU/mL Normal 0.358-3.740 [facility] Comment on above: Performed By: #### V ITAD, FT4 #### [facility] [address] [address] [address] Mary Ordaz CBC AUTO DIFFon 07-13-2021 BASO # 0.0 103/ul Normal 0.0-0.1 [facility] Comment on above: Performed By: #### C BC #### [facility] [address] [address] [address] Mary Ordaz Basophils/100 WBC (Bld) 0.3 % Normal 0.2-2.0 [facility] Comment on above: Performed By: #### C BC #### [facility] [address] [place] [address] Dr. Mary Ordaz EO # 0.3 103/ul Normal 0.0-0.7 [facility] Comment on above: Performed By: #### C BC #### [facility] [address] [place] [address] Dr. Mary Ordaz Eosinophils/100 WBC (Bld) 2.5 % Normal 0.9-7.0 [facility] Comment on above: Performed By: #### C BC #### [facility] [address] [place] [address] Dr. Mary Ordaz Erythrocyte distribution width (RBC) [Ratio] 11.9 % Normal 11.0-15.0 [facility] Comment on above: Performed By: #### C BC #### [facility] [address] [place] [address] Dr. Mary Ordaz Hematocrit (Bld) [Volume fraction] 41.3 % Normal 36.0-48.0 [facility] Comment on above: Performed By: #### C BC #### [facility] [address] [place] [address] Dr. Mary Ordaz Hemoglobin (Bld) [Mass/Vol] 13.4 g/dL Normal 12.0-16.0 [facility] Comment on above: Performed By: #### C BC #### [facility] [address] [place] [address] Dr. Mary Ordaz IG # 0.05 10e3/ul Critically high 0.00-0.03 [facility] Comment on above: Performed By: #### C BC #### [facility] [address] [place] [address] Dr. Mary Ordaz IG % 0.4 % Normal 0.0-0.5 [facility] Comment on above: Performed By: #### C BC #### [facility] [address] [place] [address] Dr. Mary Ordaz LYMPH # 1.2 103/ul Normal 1.2-3.8 [facility] Comment on above: Performed By: #### C BC #### [facility] [address] [place] [address] Dr. Mary Ordaz Lymphocytes/100 WBC (Bld) 9.8 % Critically low 20.5-60.0 [facility] Comment on above: Performed By: #### C BC #### [facility] [address] [place] [address] Dr. Mary Ordaz MANUAL DIFF REQ NO Normal [facility] Comment on above: Performed By: #### C BC #### [facility] [address] [place] [address] Dr. Mary Ordaz MCH (RBC) [Entitic mass] 30.5 pg Normal 26.7-34.0 [facility] Comment on above: Performed By: #### C BC #### [facility] [address] [place] [address] Dr. Mary Ordaz MCHC (RBC) [Mass/Vol] 32.4 g/dL Normal 29.9-35.2 [facility] Comment on above: Performed By: #### C BC #### [facility] [address] [place] [address] Dr. Mary Ordaz MCV (RBC) [Entitic vol] 93.9 fL Normal 81.0-99.0 [facility] Comment on above: Performed By: #### C BC #### [facility] [address] [place] [address] Dr. Mary Ordaz MONO # 0.7 103/ul Normal 0.3-0.8 [facility] Comment on above: Performed By: #### C BC #### [facility] [address] [address] [address] Mary Ordaz Monocytes/100 WBC (Bld) 5.6 % Normal 1.7-12.0 [facility] Comment on above: Performed By: #### C BC #### [facility] [address] [address] [address] Mary Ordaz NEUT # 9.6 103/ul Critically high 1.4-6.5 [facility] Comment on above: Performed By: #### C BC #### [facility] [address] [address] [address] Mary Ordaz Neutrophils/100 WBC (Bld) 81.4 % Critically high 43.0-75.0 [facility] Comment on above: Performed By: #### C BC #### [facility] [address] [place] [address] Dr. Mary Ordaz Platelet mean volume (Bld) [Entitic vol] 10.2 fL Normal 9.5-13.5 [facility] Comment on above: Performed By: #### C BC #### [facility] [address] [address] [address] Mary Ordaz PLT 224 103/ul Normal 150-450 [facility] Comment on above: Performed By: #### C BC #### [facility] [address] [place] [address] Dr. Mary Ordaz RBC 4.40 106/ul Normal 4.20-5.40 [facility] Comment on above: Performed By: #### C BC #### [facility] [address] [place] [address] Dr. Mary Ordaz WBC 11.8 103/ul Critically high 4.0-11.0 [facility] Comment on above: Performed By: #### C BC #### [facility] [address] [place] [address] Dr. Mary Ordaz FREE T3on 07-13-2021 FREE T3 2.91 pg/mlL Normal 2.18-3.98 [facility] Comment on above: Performed By: #### V ITAD, FT4 #### [facility] [address] [address] [address] Mary Ordaz FREE T4on 07-13-2021 Free T4 [Mass/Vol] 0.99 ng/dL Normal 0.76-1.46 [facility] Comment on above: Performed By: #### V ITAD, FT4 #### [facility] [address] [address] [address] Mary Ordaz GLYCOHEMOGLOBIN A1Con 2021 ADA RECOMMENDATION SEE BELOW Normal [facility] Comment on above: Result Comment: ADA RECOMMENDED LIMIT 4.0 - 6.0 ADA THERAPEUTIC TARGET < 7.0 ACTION SUGGESTED > 7.0 Performed By: #### A 1C #### [facility] [address] [place] [address] Dr. Mary Ordaz Glucose [Mass/Vol] 114 mg/dL Normal [facility] Comment on above: Performed By: #### A 1C #### [facility] [address] [place] [address] Dr. Mary Ordaz HbA1c (Bld) [Mass fraction] 5.6 % Normal 4.5-6.2 [facility] Comment on above: Performed By: #### A 1C #### [facility] [address] [place] [address] Dr. Mary Ordaz LIPID PROFILEon 07-13-2021 CHOL-HDL RATIO NORM SEE BELOW Normal [facility] Comment on above: Result Comment: 3.3 - 4.4 LOW RISK 4.4 - 7.1 AVERAGE RISK 7.1 - 11.0 MODERATE RISK >11.0 HIGH RISK Performed By: #### V ITAD, FT4 #### [facility] [address] [place] [address] Dr. Mary Ordaz Cholesterol [Mass/Vol] 150 mg/dL Normal <=200 [facility] Comment on above: Performed By: #### V ITAD, FT4 #### [facility] [address] [place] [address] Dr. Mary Ordaz Cholesterol in HDL [Mass/Vol] 53 mg/dL Normal 40-60 [facility] Comment on above: Performed By: #### V ITAD, FT4 #### [facility] [address] [address] [address] Mary Ordaz Cholesterol in LDL [Mass/Vol] 89.8 mg/dL Normal [facility] Comment on above: Performed By: #### V ITAD, FT4 #### [facility] [address] [address] [address] Mary Ordaz Cholesterol.total/Cho lesterol in HDL [Mass ratio] 2.8 {ratio} Normal [facility] Comment on above: Performed By: #### V ITAD, FT4 #### [facility] [address] [address] [address] Mary Ordaz HDL NORMAL > or = 60 mg/dl - LO W CARDIOVASCULAR RISK <40 mg/dl - HIGH CARDIOVASCULAR RISK Normal [facility] Comment on above: Performed By: #### V ITAD, FT4 #### [facility] [address] [place] [address] Dr. Mary Ordaz LDL CALC NORMAL SEE BELOW Normal [facility] Comment on above: Result Comment: <100 mg/dl OPTIMAL 100 - 129 mg/dl NEAR OR ABOVE OPTIMAL 130 - 159 mg/dl BORDERLINE HIGH 160 - 189 mg/dl HIGH >190 mg/dl VERY HIGH Performed By: #### V ITAD, FT4 #### [facility] [address] [place] [address] Dr. Mary Ordaz Triglyceride [Mass/Vol] 36 mg/dL Normal <=150 [facility] Comment on above: Performed By: #### V ITAD, FT4 #### [facility] [address] [place] [address] Dr. Mary Ordaz VLDL CALC 7.2 mg/dL Normal [facility] Comment on above: Performed By: #### V ITAD, FT4 #### [facility] [address] [place] [address] Dr. Mary Ordaz LIVER PROFILEon 07-13-2021 Albumin [Mass/Vol] 3.5 g/dL Normal 3.4-5.0 [facility] Comment on above: Performed By: #### V ITAD, FT4 #### [facility] [address] [address] [address] Mary Ordaz Albumin/Globulin [Mass ratio] 0.9 {ratio} Normal [facility] Comment on above: Performed By: #### V ITAD, FT4 #### [facility] [address] [address] [address] Mary Ordaz ALP [Catalytic activity/Vol] 76 U/L Normal 46-116 [facility] Comment on above: Performed By: #### V ITAD, FT4 #### [facility] [address] [address] [address] Mary Ordaz ALT [Catalytic activity/Vol] 18 U/L Normal 14-59 [facility] Comment on above: Performed By: #### V ITAD, FT4 #### [facility] [address] [place] [address] Dr. Mary rOdaz AST [Catalytic activity/Vol] 12 U/L Critically low 15-37 [facility] Comment on above: Performed By: #### V ITAD, FT4 #### [facility] [address] [place] [address] Dr. Mary Ordaz BILI, CONJUGATED 0.1 mg/dL Normal 0.0-0.2 [facility] Comment on above: Performed By: #### V ITAD, FT4 #### [facility] [address] [place] [address] Dr. Mary Ordaz Bilirubin [Mass/Vol] 0.6 mg/dL Normal 0.2-1.0 [facility] Comment on above: Performed By: #### V ITAD, FT4 #### [facility] [address] [place] [address] Dr. Mary Ordaz Globulin (S) [Mass/Vol] 3.9 g/dL Normal [facility] Comment on above: Performed By: #### V ITAD, FT4 #### [facility] [address] [place] [address] Dr. Mary Ordaz Protein [Mass/Vol] 7.4 g/dL Normal 6.4-8.2 [facility] Comment on above: Performed By: #### V ITAD, FT4 #### [facility] [address] [place] [address] Dr. Mary Ordaz PROF CHEM 8 (BAS METB)on Anion gap [Moles/Vol] 12.8 mmol/L Normal [facility] Comment on above: Performed By: #### V ITAD, FT4 #### [facility] [address] [place] [address] Dr. Mary Ordaz Calcium [Mass/Vol] 8.8 mg/dL Normal 8.5-10.1 [facility] Comment on above: Performed By: #### V ITAD, FT4 #### [facility] [address] [place] [address] Dr. Mary Ordaz Chloride [Moles/Vol] 104 mmol/L Normal 98-107 [facility] Comment on above: Performed By: #### V ITAD, FT4 #### [facility] [address] [place] [address] Dr. Mary Ordaz CO2 [Moles/Vol] 26.8 mmol/L Normal 21.0-32.0 [facility] Comment on above: Performed By: #### V ITAD, FT4 #### [facility] [address] [place] [address] Dr. Mary Ordaz Creatinine [Mass/Vol] 0.92 mg/dL Normal 0.55-1.02 [facility] Comment on above: Performed By: #### V ITAD, FT4 #### [facility] [address] [place] [address] Dr. Mary Ordaz EGFR-AF UKRAINIAN >60 Normal >=60 [facility] Comment on above: Performed By: #### V ITAD, FT4 #### [facility] [address] [place] [address] Dr. Mary Ordaz EGFR-NON AF UKRAINIAN >60 Normal >=60 [facility] Comment on above: Performed By: #### V ITAD, FT4 #### [facility] [address] [place] [address] Dr. Mary Ordaz Glucose [Mass/Vol] 84 mg/dL Normal 74-[address] [facility] Comment on above: Performed By: #### V ITAD, FT4 #### [facility] [address] [place] [address] Dr. Mary Ordaz Potassium [Moles/Vol] 3.6 mmol/L Normal 3.5-5.1 [facility] Comment on above: Performed By: #### V ITAD, FT4 #### [facility] [address] [place] [address] Dr. Mary Ordaz Sodium [Moles/Vol] 140 mmol/L Normal 136-[address] [facility] Comment on above: Performed By: #### V ITAD, FT4 #### [facility] [address] [place] [address] Dr. Mary Ordaz Urea nitrogen [Mass/Vol] 13.0 mg/dL Normal 7.0-18.0 [facility] Comment on above: Performed By: #### V ITAD, FT4 #### [facility] [address] [place] [address] Dr. Mary Ordaz Urea nitrogen/Creatinine [Mass ratio] 14.1 mg/mg Normal [facility] Comment on above: Performed By: #### V ITAD, FT4 #### [facility] [address] [place] [address] Dr. Mary Ordaz TSHon 07-13-2021 TSH 2.648 uIU/mL Normal 0.358-3.740 [facility] Comment on above: Performed By: #### V ITAD, FT4 #### [facility] [address] [place] [address] Dr. Mary Ordaz TSH RANGE SEE BELOW Normal [facility] Comment on above: Result Comment: <0.3 4 UIU/ml HYPERTHYROID 0.34-5.60 UIU/ml EUTHYROID >5.60 UIU/ml HYPOTHYROID Performed By: #### V ITAD, FT4 #### [facility] [address] [place] [address] Dr. Mary Ordaz VITAMIN D 25 OHon 07-13-2021 VIT D 25-OH 29.6 ng/mL Normal [facility] Comment on above: Performed By: #### V MORIAHAD, FT4 #### [facility] [address] [place], [place] [address] Dr. Mary Ordaz VIT D RANGES SEE BELOW Normal [facility] Comment on above: Result Comment: <20 ng/mL Vit D deficient 20 - <30 ng/mL Vit D insufficient 30 - 100 ng/mL Vit D sufficient >100 ng/mL Potential Toxicity Performed By: #### V SHAHID, FT4 #### [facility] [address] [place], [place] [address] Dr. Mary Ordaz Vital Signs Date Time Vital Sign Value Performing Clinician Faci lity 01-11-2022 09:37-0500 Body height 162.6 cm Abbie Early MD Work Phone: [facility] 01-11-2022 09:37-0500 Body temperature 97.2 [degF] Abbie Early MD Work Phone: [facility] 01-11-2022 09:37-0500 Body weight 75.07 kg Abbie Early MD Work Phone: [facility] 01-11-2022 09:37-0500 Diastolic blood pressure 84 mm[Hg] Abbie Early MD Work Phone: [facility] 01-11-2022 09:37-0500 Heart rate 79 /min Abbie Early MD Work Phone: [facility] 01-11-2022 09:37-0500 Systolic blood pressure 132 mm[Hg] Abbie Early MD Work Phone: [facility] Encounters Encounter Date Encounter Type Care [...] examination without abnormal findings DR DIEGO FAIR [facility] Start: 07-13-2021 End: 07-14-[address] DIEGO FAIR Facility:[facility] Start: 07-13-2021 End: 07-14-2021 Encounter for general adult medical examination without abnormal findings DR DIEGO FAIR Facility:[facility] Plan of Treatment Date Care Activity Detail Author Start: 01-11-2022 End: 03-13-2022 25-hydroxyvitamin D3 [Mass/volume] in Serum or Plasma [facility] Work Phone: Comment on above: Expected: 01/11/2022 , Expires: 03/13/2022 Start: 01-11-2022 End: 03-13-2022 Arsenic [Mass/volume] in Blood [facility] Work Phone: Comment on above: Expected: 01/11/2022 , Expires: 03/13/2022 Start: 01-11-2022 End: 03-13-2022 BABESIA CLINTON IGG/IGM [facility] Work Phone: Comment on above: Expected: 01/11/2022 , Expires: 03/13/2022 Start: 01-11-2022 End: 03-13-2022 BARTONELLA AB PANEL [facility] Work Phone: Comment on above: Expected: 01/11/2022 , Expires: 03/13/2022 Start: 01-11-2022 End: 03-13-2022 Borrelia burgdorferi IgG and IgM panel - Serum [facility] Work Phone: Comment on above: Expected: 01/11/2022 , Expires: 03/13/2022 Start: 01-11-2022 End: 03-13-2022 Comprehensive metabolic 2000 panel - Serum or Plasma [facility] Work Phone: Comment on above: Expected: 01/11/2022 , Expires: 03/13/2022 Start: 01-11-2022 End: 03-13-2022 COPPER BLOOD [facility] Work Phone: Comment on above: Expected: 01/11/2022 , Expires: 03/13/2022 Start: 01-11-2022 End: 03-13-2022 EHRLICHIA CHAF ABS [facility] Work Phone: Comment on above: Expected: 01/11/2022 , Expires: 03/13/2022 Start: 01-11-2022 End: 03-13-2022 Narciso Guevara virus capsid IgG Ab [Units/volume] in Serum [facility] Work Phone: Comment on above: Expected: 01/11/2022 , Expires: 03/13/2022 Start: 01-11-2022 End: 03-13-2022 Narciso Guevara virus capsid IgM Ab [Units/volume] in Serum [facility] Work Phone: Comment on above: Expected: 01/11/2022 , Expires: 03/13/2022 Start: 01-11-2022 End: 03-13-2022 Narciso Geuvara virus early Ab [Units/volume] in Serum [facility] Work Phone: Comment on above: Expected: 01/11/2022 , Expires: 03/13/2022 Start: 01-11-2022 End: 03-13-2022 Narciso Guevara virus nuclear Ab [Units/volume] in Serum [facility] Work Phone: Comment on above: Expected: 01/11/2022 , Expires: 03/13/2022 Start: 01-11-2022 End: 03-13-2022 Gamma glutamyl transferase [Enzymatic activity/volume] in Serum or Plasma [facility] Work Phone: Comment on above: Expected: 01/11/2022 , Expires: 03/13/2022 Start: 01-11-2022 End: 03-13-2022 GLIADIN (DEAMIDATED) AB, IGA [facility] Work Phone: Comment on above: Expected: 01/11/2022 , Expires: 03/13/2022 Start: 01-11-2022 End: 03-13-2022 GLIADIN (DEAMIDATED) AB, IGG [facility] Work Phone: Comment on above: Expected: 01/11/2022 , Expires: 03/13/2022 Start: 01-11-2022 End: 03-13-2022 Hemoglobin A1c in Blood [facility] Work Phone: Comment on above: Expected: 01/11/2022 , Expires: 03/13/2022 Start: 01-11-2022 End: 03-13-2022 Homocysteine [Moles/volume] in Serum or Plasma [facility] Work Phone: Comment on above: Expected: 01/11/2022 , Expires: 03/13/2022 Start: 01-11-2022 End: 03-13-2022 Insulin [Units/volume] in Serum or Plasma [facility] Work Phone: Comment on above: Expected: 01/11/2022 , Expires: 03/13/2022 Start: 01-11-2022 End: 03-13-2022 Lead [Mass/volume] in Blood [facility] Work Phone: Comment on above: Expected: 01/11/2022 , Expires: 03/13/2022 Start: 01-11-2022 End: 03-13-2022 MAGNESIUM RBC [facility] Work Phone: Comment on above: Expected: 01/11/2022 , Expires: 03/13/2022 Start: 01-11-2022 End: 03-13-2022 Mercury [Mass/volume] in Blood [facility] Work Phone: Comment on above: Expected: 01/11/2022 , Expires: 03/13/2022 Start: 01-11-2022 End: 03-13-2022 Thyroglobulin Ab [Units/volume] in Serum or Plasma [facility] Work Phone: Comment on above: Expected: 01/11/2022 , Expires: 03/13/2022 Start: 01-11-2022 End: 03-13-2022 THYROID PEROXIDASE ANTIBODY BLOOD [facility] Work Phone: Comment on above: Expected: 01/11/2022 , Expires: 03/13/2022 Start: 01-11-2022 End: 03-13-2022 Thyrotropin [Units/volume] in Serum or Plasma [facility] Work Phone: Comment on above: Expected: 01/11/2022 , Expires: 03/13/2022 Start: 01-11-2022 End: 03-13-2022 Thyroxine (T4) free [Mass/volume] in Serum or Plasma [facility] Work Phone: Comment on above: Expected: 01/11/2022 , Expires: 03/13/2022 Start: 01-11-2022 End: 03-13-2022 Tissue transglutaminase IgA Ab [Units/volume] in Serum [facility] Work Phone: Comment on above: Expected: 01/11/2022 , Expires: 03/13/2022 Start: 01-11-2022 End: 03-13-2022 Tissue transglutaminase IgG Ab [Units/volume] in Serum [facility] Work Phone: Comment on above: Expected: 01/11/2022 , Expires: 03/13/2022 Start: 01-11-2022 End: 03-13-2022 Triiodothyronine (T3) Free [Mass/volume] in Serum or Plasma [facility] Work Phone: Comment on above: Expected: 01/11/2022 , Expires: 03/13/2022 Start: 01-11-2022 End: 03-13-2022 Triiodothyronine (T3).reverse [Mass/volume] in Serum or Plasma [facility] Work Phone: Comment on above: Expected: 01/11/2022 , Expires: 03/13/2022 Start: 01-11-2022 End: 03-13-2022 Zinc [Mass/volume] in Serum or Plasma [facility] Work Phone: Comment on above: Expected: 01/11/2022 , Expires: 03/13/2022 Start: 10-20-2021 Influenza vaccination INFLUENZA (#1) [facility] Start: 2021 Mammography MAMMOGRAM [facility] Start: 02-19-2021 DEPRESSION ASSESSMENT DEPRESSION ASS ESSMENT [facility] Start: 07-22-2020 COVID-19 VACCINE (2 - Booster for Moe series) COVID-19 VACCINE (2 - Booster for Moe series) [facility] Start: 05-01-2011 HPV TESTING HPV TESTING [facility] Start: 2002 PAP TESTING PAP TESTING [facility] Start: 2000 Urine microalbumin profile DTA P,TDAP,TD (1 - Tdap) [facility] Start: 05-01-1999 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 VISIT ANNUAL PCP TEAM CHRONIC DISEASE VISIT [facility] Start: 05-01-1999 BP CONTROLLED (<130/80) BP CON TROLLED (<130/80) [facility] Start: 05-01-1999 HEPATITIS C SCREENING HEPATITIS C SC PRAVEEN [facility] Start: 05-01-1999 HIV SCREENING HIV SCREENING [facility] Start: 1981 HEPATITIS B (1 of 3 - 3-dose series) HEPATITIS B (1 of 3 - 3-dose series) [facility] FM BACTERIAL OVERGRO WTH BREATH 2 HOUR FM BACTERIAL OVERGROWTH BREATH 2 HOUR Lab Routine Flatulence Postprandial bloating Hives Lupus (HCC) Fibromyalgia Hypertension, unspecified type B12 deficiency Toxin exposure Mold exposure Exposure to mercury Chronic fatigue Suspected Lyme disease Family history of diabetes mellitus in father History of gestational diabetes Ordered: 01/11/2022 [facility] Work Phone: Comment on above: Ordered: 01/11/2022 FM GI EFFECTS, 3 STO OL SPECIMENS FM GI EFFECTS, 3 STOOL SPECIMENS Lab Routine Flatulence Postprandial bloating Hives Lupus (HCC) Fibromyalgia Hypertension, unspecified type B12 deficiency Toxin exposure Mold exposure Exposure to mercury Chronic fatigue Suspected Lyme disease Family history of diabetes mellitus in father History of gestational diabetes Ordered: 01/11/2022 [facility] Work Phone: Comment on above: Ordered: 01/11/2022 Payers Date Payer Category Payer Private Health Insurance [id number] 2022 Unknown [id number] 2021 Unknown [employer] PPO [id number] 2021-Present [phone] [address] [place] [address] PPO [id number] 2020 Medicaid [place] MEDICAID TERM 01/18 [facility] MEDICAID [id number] 2020-Present [phone] [address] [place] [address] Medicaid [id number] 1981 Unknown [id number] 1981 Unknown [id number] 1981 Unknown [id number] 1981 Unknown [id number] 1981 Unknown [id number] 1981 Unknown [id number] 1959 Medicaid [id number] 1959 Unknown [id number] Social History Date Type Detail Facility Start: [facility]-11[facility]2022 [facility] Start: 01-11-2022 Tobacco use and exposure Smoke less tobacco non-user [facility] Start: 01-11-2022 Alcohol intake Current non-dr blending tank tender of alcohol (finding) [facility] Start: 1980 Sex Assigned At Not on file C [facility] Clinical Notes 01-11-[address] - 01/11/2022 10:41 AM Radha Early MD - 01/11/2022 9:48 AM [facility] 9:31 AM ESTPatient Instructions Note Date & Type Note Facility 01-11-2022 Note Education ([facility]) JU MCNAIR ([id number]) 1980 F Date Time Provider Department 01/11/22 [...] 4 capsules daily at bedtime - Omeg[employer]ail [id number] ([employer]) Take one softgel daily. - Methylcobalamin B12 5000mcg (Klaire/Prothera) Take 1 tablet by mouth once daily. - Vitamin D3 5000 U ([employer]) Take 1 capsule by mouth daily with food. Encounter Status:Closed by SHANA EMERY on 01/11/22 [facility] 01-11-2022 Note Education ([facility]) JU MCNAIR ([id number]) 1980 F Date Time Provider Department 01/11/22 11:00 AM SHANIA HAGEN [facility] Reason for Visit: New Patient [...] 4 capsules daily at bedtime - OmegAvail [id number] ([employer]) Take one softgel daily. - Methylcobalamin B12 5000mcg (Klaire/Prothera) Take 1 tablet by mouth once daily. - Vitamin D3 5000 U (Pure Encapsulations) Take 1 capsule by mouth daily with food. Encounter Status:Closed by SHANIA HAGEN on 01/11/22 [facility] 01-11-2022 Instructions Shania Hagen RD - 01/11/2022 12:56 PM EST Images from the original note were not included. [facility] FUNCTIONAL [facility] FOLLOW UP NUTRITION INSTRUCTIONS We recommend scheduling your Follow-up appointment at the end of your initial appointment. Nutrition Follow-up: In 4-6 weeks with Functional Medicine Registered Dietitian (Isaura Patel Sarah or Swati) Preparation for Follow-up: Complete a 3 day food record using the Diet, Nutrition and Lifestyle Journal from the [employer] Nutrition Portal If follow-up is virtual: scan into The Rounds or send to before joining your appointment If follow-up is in person: bring to your appointment Your Prescribed Nutrition Plan: Elimination + Low Histamine Plan from the start. Access the Functional Nutrition Portal in [facility] to access your food plan comprehensive guide, weekly recipe traffic and transport planner, and food list. Shop for foods [...] Seeds Vegetables Non-starchy vegetables Gluten Dairy Eggs [place] Soy Pork Beef Shellfish Peanuts Processed meats [...] Canned Fish Fermented foods (yogurt, kefir) Cashews Chaves Seeds [place] Halves Avocado Olives Eggplant Fermented vegetables: kimchi, pickles, sauerkraut, relish etc. Mushrooms Salsa Spinach Pumpkin Tomato Dried Fruit Apricots Cherries [place] Fruits (orange, grapefruit, lemon, [place]) Tips for Success: 1. Plan from the start. Access the Functional Nutrition Portal in Ad[employer] to access your food plan comprehensive guide, weekly recipe traffic and transport planner, and food list. Shop for foods [...] the best hydration options. How to Access Adimab Your Food Plan Resources: Accessing on Adimab To access Adimab, please visit: [email or web address] to create a new account. Step 1: Create Your Account: Complete the following mayfield: username, password, email address, first name & last name. Click 'Create My New Account'. A message will display. Click continue. Step 2: Verify Your Account: Check your email for an email from Adimab. In the email, click the link provided to launch Adimab and complete registration. Step 3: Enroll in the 'Functional Nutrition Portal'. Once you have launched Adimab, hover over the Find Learning tab, and [...] Step 5: To login after enrollment, visit [email or web address]. Login under 'Non-Employee Login' using the username and password from step #1. Step 6: If you receive an error message that you already have an account, please click 'forgotten your username of password?' to reset your password. Need Help? If you have difficulty accessing this course, please email . ADDITIONAL INSTRUCTIONS: How to Contact Your Functional Medicine Team (Open M-F 8am-5pm): 1. [employer] is the BEST form of communication to reach the Functional Medicine Team, see test results and request refills. Please allow 72 business hours for a response. Directions for signing up are included in your New Patient Folder. (Or you can go to [email or web address]) 2. For nutrition related questions or concerns, TaiMed Biologicst message your physician and include Attn: Shania Hagen RD at the top of the message. The Rounds messaging is meant to support implementation of [...] Supplements: Supplements can be ordered from the [facility]'s [facility]'s Online Store: [email or web address] New patients to the Healthy Living Shop will need to enter the provider code FUNCTIONAL to register their account. documented in this encounter [facility] 01-11-2022 Note HNO ID: [id number] Author: Shania Hagen RD Service: ? Author Type: Registered Dietitian Type: Progress Notes Filed: 01/11/2022 12:56 PM Note Text: [facility] Functional [facility] Nutrition Therapy: Initial Assessment (Group) New Patient [...] start. Access the Functional Nutrition Portal in Adimab to access your food plan comprehensive guide, weekly recipe traffic and transport planner, and food list. Shop for foods [...] Seeds Vegetables Non-starchy vegetables Gluten Dairy Eggs [place] Soy Pork Beef Shellfish Peanuts Processed meats Caffeinated coffee Black tea Alcohol Chocolate Your Food Plan Modifier: Modifier: (more content not included)... [facility] 01-11-2022 Note HNO ID: [id number] Author: Abbie Early MD Service: ? Author [...] Take 4 capsules daily at bedtime OmegAvail [id number] ([employer]) Take one softgel daily. Methylcobalamin B12 5000mcg [...] General InfoLast Medical Care:[facility] Esp[facility] Physician Name:Dr. Solitario MarmolejoLearned about our practice [...] Mother Fair - (more content not included)... [facility] 01-11-2022 Note HNO ID: [id number] Author: Shana Emery [facility] Service: ? Author Type: Health Educator Type: Progress Notes Filed: 01/11/2022 12:58 PM Note Text: GROUP HEALTH ASSISTANT RESTAURANT GENERAL MANAGER COHORT IN PERSON Patient was part of an in-person, group health job coaching session. Patient received education and participated in discussion about modifiable lifestyle factors and healthy habits, with emphasis on the role of the health job coaching within the functional medicine model and the Wheel of Wellness. Other topics of discussion included Functional Medicine process and scheduling for follow-up visits and support prior to next visit. ............................... ............................... ............. ............................ FOLLOW UP: 30-Minute Consultation with Health Toll Booth Operator within 1-2 weeks Time Spent with Patient: 30 minutes Signed by: Shana Emery [facility] 01-11-2022 History of Presen t illness Narrative Images from the original note were not included. [facility] Nutrition Therapy: Initial Assessment [...] start. Access the Functional Nutrition Portal in Adimab to access your food plan comprehensive guide, weekly recipe traffic and transport planner, and food list. Shop for foods [...] Seeds Vegetables Non-starchy vegetables Gluten Dairy Eggs [place] Soy Pork Beef Shellfish Peanuts Processed meats [...] Canned Fish Fermented foods (yogurt, kefir) Cashews Chaves Seeds [place] Halves Avocado Olives Eggplant Fermented vegetables: kimchi, pickles, sauerkraut, relish etc. Mushrooms Salsa Spinach Pumpkin Tomato Dried Fruit Apricots Cherries [place] Fruits (orange, grapefruit, lemon, [place]) Tips for Success: 1. Plan from the start. Access the Functional Nutrition Portal in Adimab to access your food plan comprehensive guide, weekly recipe traffic and transport planner, and food list. Shop for foods [...] the best hydration options. How to Access Adimab Your Food Plan Resources: Accessing on Adimab To access Adimab, please visit: [email or web address] to create a new account. Step 1: Create Your Account: Complete the following mayfield: username, password, email address, first name & last name. Click 'Create My New Account'. A message will display. Click continue. Step 2: Verify Your Account: Check your email for an email from Adimab. In the email, click the link provided to launch Adimab and complete registration. Step 3: Enroll in the 'Functional Nutrition Portal'. Once you have launched Adimab, hover over the Find Learning tab, and [...] Step 5: To login after enrollment, visit [email or web address]. Login under 'Non-Employee Login' using the [...] Materials Provided: Food Plan Comprehensive Guide, Weekly Master Machinist and Recipes, Phytonutrient Spectrum Foods, Product Guide, Simple Meal and Snack Ideas Follow up: 4 Weeks Time Spent: 60 minutes Referred/Supervised by: Abbie Early MD Consult Billing Type: Group/60 minutes Number of Increments: 2 (60 minutes) Signed by: Shania Hagen RD documented in this encounter [facility] 01-11-2022 History of Presen t illness [...] Take 4 capsules daily at bedtime OmegAvail [id number] ([employer]) Take one softgel daily. Methylcobalamin B12 5000mcg [...] General InfoLast Medical Care:Jan 09, 2022 - [facility] - Yaneth Espinoza [facility] Physician Name:Dr. 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 Bioelectrical Impedance Analysis Results by [employer] Recent Results from: 01/11/22 at 10:54 [...] DMSA provocation to assess for heavy metals GUINEAN PLUS to assess hormone pathways, methylation and estrogen metabolism Trauma work TODAY'S OTHER RECOMMENDATIONS: Elimination Diet and Low Histamine Diet 2. Supplements-see below Follow up: Please schedule a follow up visit with one of our Caregivers in 10-16 weeks or next available appointment Make sure to schedule with your switchboard operator helper and health job coaching Please schedule your next appointment in 3 months! We would love to see you back on this journey! Options to schedule: Contact credit front office developer at [phone] Call the Central Scheduling Appointment Line [phone] 3. Use [employer] Inculing through [employer] LIFESTYLE PRESCRIPTION Functional Nutrition: Elimination Diet Sleep: [...] one of the Heart Math booklets off [employer] that fits your 'go to' emotion - [...] Health Coaching: Please consider scheduling with our [facility] health coaches for a phone or virtual visit for accountability, goal setting and help with behavior guide changer the next 6-8 weeks to be successful with your goals. [phone]. Smart phone apps to begin a meditative [...] 1 tablet by mouth once daily. OmegAvail [id number] ([employer]) Sig: Take one softgel daily. PhytoMulti (Metagenics) Sig: Take 2 tablets daily with food Vitamin D3 5000 U (Pure Encapsulations) Sig: Take 1 capsule by mouth daily with food. Refill: 0 I recommend the supplements from the [facility] [employer] Online Store at https://[employer].Up[employer] Labs/ as we have thoroughly evaluated the research and use only highest quality supplements. Healthy Living Shop The [facility] offers an easy to use, convenient way to order supplementation recommended by your provider through the [employer] Shop. All of the products offered are considered high-quality, and adhere to specific criteria for quality and effectiveness including good manufacturing practices, use of clean products, free of fillers, binders, and other antigens. In addition, we follow third alliance party analysis for independent verification of active ingredients. Get started by following three easy steps: Visit the following webpage: [email or web address].Upstart [employer]/ [employer] Shop Statements on this site have not been evaluated by the Food and Drug Administration Dr. Solitario Hardin is an employee of [facility]. In addition, he is the President of [employer]. store.OnTheRoad Create an account: Enter your first name, [...] For issues with your MRN please call [phone] During the next 6-8 weeks you'll be working on your diet plan discussed with our dobby loom chain pegger, allowing for gentle detoxification and decreasing inflammation - while we are gathering your lab results and combining those with your complete history to formulate a very personalized treatment plan. LAB results: Due to the complexity of the testing performed, we are not able to review labs via TaiMed Biologicst or over the phone, but please know, if any of your labs are critical we will contact you. Otherwise, we will review all your labs at your next visit. We will go over a lot of information during your follow up visit. Also make sure to schedule with the dobby loom chain pegger (this will not happen automatically). Potential future labs: Any MyPermissions labs ordered take about 4 weeks to return. Do them as soon as possible so that we have the results before your next appointment. You can access them on the [employer]Perm[employer] website and it can be beneficial if you review them prior to your next visit. www.Redfin Network.net. Read about NutrEval if this was ordered. Abbie Early MD Time spend with patient: I spent 74 minutes minutes of face to face time with the patient. At least 50% of this time was spent preparing to see the patient, [id number] patient care, completing clinical documentation, obtaining and/or reviewing separately obtained history, performing a medically appropriate examination, counseling and educating the patient/family/caregiver, and ordering medications, tests, or procedures documented in this encounter [facility] 01-11-2022 History of Presen t illness Narrative GROUP HEALTH ASSISTANT RESTAURANT GENERAL MANAGER COHORT IN PERSON Patient was part of an in-person, group health job coaching session. Patient received education and participated in discussion about modifiable lifestyle factors and healthy habits, with emphasis on the role of the health job coaching within the functional medicine model and the Wheel of Wellness. Other topics of discussion included Functional Medicine process and scheduling for follow-up visits and support prior to next visit. ............................... ............................... ............................... .......... FOLLOW UP: 30-Minute Consultation with Health Toll Booth Operator within 1-2 weeks Time Spent with Patient: 30 minutes Signed by: Shana Emery [facility] documented in this encounter [facility] 01-11-2022 Instructions Shana Emery [facility] ED - 01/11/2022 9:31 AM EST Images from the original note were not included. [facility] HEALTH ASSISTANT RESTAURANT GENERAL MANAGER FOLLOW-UP At the [facility], we focus on the person as a whole: Mind, Body, and Spirit. Working with your Health Toll Booth Operator on a regular basis can help you [...] steps for implementing lifestyle changes. Staff Health Toll Booth Operator Follow-Up Timeframe: Within 1-2 Weeks with Functional Medicine Health Toll Booth Operator (Shana Bae or Yaima) Schedule your initial 1:1 health coaching appointment and/or Mindfulness group coaching session For 1:1 appointments: schedule by calling the appointment center ([phone] option #1) or through The Rounds self-scheduling For Mindfulness group coaching: register at [email or web address] 2. Sign up for the [employer] Shop to order your supplements 3. Create a Adimab account to access the Functional Health Coaching Portal Review the Wheel of Wellness self-assessment tool in preparation for your first 1:1 appointment How to Access the Functional Health Coaching Portal: To access Adimab, please visit: [email or web address] to create a new account. Step 1: Create Your Account: Complete the following mayfield: username, password, email address, first name & last name. Click 'Create My New Account'. A message will display. Click continue. Step 2: Verify Your Account: Check your email for an email from Adimab. In the email, click the link provided to launch Adimab and complete registration. Step 3: Enroll in the 'Functional Health Coaching Portal'. Once you have launched Adimab, hover over the Find Learning tab, and click on the drop-down option 'Courses'. Search for the course Functional Health Coaching Portal in the search field. In the search results, click the link to access the course. Step 4: Enter the Enrollment [facility] Functional Coaching (this is case sensitive). Step 5: To login after enrollment, visit [email or web address]. Login under 'Non-Employee Login' using the username and password from step #1. If you have difficulty accessing this course, please email [email or web address] ADDITIONAL INSTRUCTIONS: How to Contact Your Functional Medicine Team (Open M-F 8am-5pm): [employer] is the BEST form of communication to reach the Functional Medicine Team, see test results and request refills. Please allow 72 business hours for a response. Directions for signing up are included in your New Patient Folder. (Or you can go to [email or web address]) Ordering Supplements: Supplements can be ordered from the [facility]'s [facility]'s Online Store: [email or web address] New patients to the Healthy Living Shop will need to enter the provider code FUNCTIONAL to register their account. documented in this encounter [facility] Evaluation note Diagnosis Fibromyalgia- Primary Mylagia [...] of gestational diabetes [facility] Diagnosis Lupus (HCC)- Primary Systemic lupus erythematosus Postprandial bloating Flatulence, eructation, and gas pain Fibromyalgia Mylagia and myositis, unspecified Chronic fatigue Other malaise and fatigue Dietary counseling and surveillance Dietary surveillance and counseling [facility] Diagnosis Encounter for person encountering health services- Primary documented in this encounter [facility] Summary Purpose Family History No Family [...] or prosecute any alcohol or drug abuse patient.[facility] the event this information is protected by the Federal Confidentiality of Alcohol and Drug Abuse Patient Records regulations: The Federal rules restrict any use of the information to criminally investigate or prosecute any alcohol or drug abuse patient.[facility] the event this information is protected by the Federal Confidentiality of Alcohol and Drug Abuse Patient Records regulations: The Federal rules restrict any use of the information to criminally investigate or prosecute any alcohol or drug abuse patient.[facility] Reason for Visit (unrecogniz ed section and content) Reason Comments New Patient Care Teams (unrecognized sec tion and content) Hazardous Materials Analyst Relationship Specialty Start Date End Date (Historical), No Pcp PCP - General 04/07/14 Hazardous Materials Analyst Relationship Specialty Start Date End Date (Historical), No Pcp PCP - General 04/07/14 Hazardous Materials Analyst Relationship Specialty Start Date End Date (Historical), No Pcp PCP - General 04/07/14 INFORMATION SOURCE (unrecogn ized section and content) DATE CREATED AUTHOR 01/17/2022 [facility] DATE CREATED AUTHOR AUTHOR'S ORGANIZ ATION 03/14/2022 [facility] DATE CREATED AUTHOR AUTHOR'S ORGANIZ ATION 02/27/2023 [facility] dicnj Specialists [facility] FOR RECORDS PERTAINING TO PATIENTS WHO [...] BE BASED ON THE PRIMARY CLINICAL RECORDS. [employer] [facility]. provides no warranty or guarantee of the accuracy or completeness of information in this document.
[2023-03-12 17:35] LABS: TSH W/ REFLEX FT4 2.603 uIU/mL (0.358-3.740)
[2023-03-14 08:12] LABS: Triiodothyronine (T3) 128 ng/dL (71-180)
[2023-03-14 12:08] LABS: Antinuclear Antibodies, IFA Positive (.)
== END 2023-03-12 16:18 | disposition home or self-care (01) ==
LOC: LAB 16:18
PROVIDERS: PCP Family Medicine; Visit Provider Internal Medicine
DX: R79.89 Other specified abnormal findings of blood chemistry (principal); R76.8 Other specified abnormal immunological findings in serum
CPT/HCPCS: 36415; 84443; 84480; 86038